=== PATIENT | male | born 1995 | race Caucasian/White ===

== ENCOUNTER 2016-12-18 01:30 | Inpatient (IN) | payer OTHER ==
--- NOTE | 2016-12-18 01:45 | EDPHY ---
H & P Stated Complaint: muscle tightness&numbnes, rash post triathlon training HPI/ROS: HPI CHIEF COMPLAINT: Bilateral leg pain, bilateral lower extremity weakness, tingling, rash HISTORY OF PRESENT ILLNESS: This patient 21-year-old male, otherwise healthy, tells me that he recently had strep pharyngitis diagnosed with former Clinic and completed 2 courses of antibiotics but cannot remember the antibiotics he presents to the emergency room 2 o'clock in the morning stating that he has bilateral lower extremity weakness bilateral lower extremity pain is unable walk and numbness and tingling to his bilateral lower extremities. Patient tells me that he has been training for a triathlon and swimming extensively on Wednesday was swimming in the pool and his leg started have severe pain cramping especially around his heels he had to stop swimming. He worked out on Wednesday again same thing happened it has progressively gotten worse over the past week. Tells me that now both his legs bilaterally hurting he has muscle aches, and then this evening after drinking multiple alcoholic beverages tells me that he has worsening numbness and tingling in his bilateral legs is unable to walk his legs feel weak and heavy. He also knows approximately 3 hours ago he has a rash that is on his bilateral lower extremities and scrotum. Denies recent fever. Does tell me he still has a sore throat. He denies neck stiffness or severe neck pain denies severe headache. Denies nausea vomiting. Patient also tells me that he has low back pain. Past Medical History: Denies significant medical history, recently diagnosed with strep pharyngitis with 2 courses of antibiotics. Past Surgical History: Denies significant surgical history Social History: [employer] student, occasional alcohol use, denies drugs or tobacco Family History: Noncontributory ROS REVIEW OF SYSTEMS: A comprehensive 10 point review of systems is otherwise negative aside from elements mentioned in the history of present illness. Exam Constitutional Nontoxic appearing, no meningeal signs, triage nursing summary reviewed, vital signs reviewed, awake/alert. Eyes normal conjunctivae and sclera, EOMI, PERRLA. HENT normal inspection, atraumatic, moist mucus membranes, no epistaxis, neck supple/ no meningismus, no raccoon eyes. Respiratory clear to auscultation bilaterally, normal breath sounds, no respiratory distress, no wheezing. Cardiovascular rate normal, regular rhythm, no murmur, no edema, distal pulses normal. Gastrointestinal soft, non-tender, no rebound, no guarding, normal bowel sounds, no distension, no pulsatile mass. Genitourinary no CVA tenderness. Musculoskeletal no midline vertebral tenderness, full range of motion, no calf swelling, no tenderness of extremities, no meningismus, good pulses, neurovascularly intact. Skin there is a non blanchable petechial rash of the bilateral lower extremities, and noted on the scrotum, nontender, they are palpable, no central clearing, does not involve his stomach back chest arms located diffusely spread out on his legs and scrotum pink, warm, & dry Neurologic Bilateral lower extremity: On reflex testing he has hyperreflexia, when I have him try to ambulate he is unable to do so due to leg weakness. On leg strength testing bilaterally history of 5 strength he is able to lift his leg up off the bed hold it in the air however does drift with the bed. He is easily broken with resistance. Hyperreflexia on patella exam. Diffuse looking particular rash in the bilateral extremities. awake, alert and oriented x 3, AAOx3, moves all 4 extremities equally, motor intact, sensory intact, CN II-XII intact, normal cerebellar, normal vision, normal speech. Psychiatric normal mood/affect. Heme/Lymph/Immune no lymphadenopathy. Differential Diagnosis: Includes but is not limited to in a particular order electrolyte abnormality, rhabdomyolysis, dehydration, Guillain-Uvalda syndrome, transverse myelitis, viral meningitis, bacterial meningitis, Erythema multiform, Ortiz-Shankar syndrome, drug reaction Medical Decision Making: This patient had an IV established obtain blood work including blood cultures, he will have inflammatory markers. Patient had blood cultures. Lactic acid. He will need a CT scan of his head, chest x-ray, he will need MRI with contrast of his T and L-spine due to severe leg weakness. And most likely patient will need a lumbar puncture. Re-evaluation: CT scan of the head without IV contrast. The results of the study are negative for acute intracranial abnormality. The study was read by Dr. Mitchell. I viewed the images myself on the PACS system. 0233: IT is noted this strep pharyngitis test is positive. EKG interpretation by me on record in [employer] system. Impression time of EKG 2:35 a.m., this is sinus rhythm rate of 93, early people pattern present. LVH present. No evidence of ischemia. 0305: Patient verbally and written consent for CSF studies. On lumbar puncture. Reason for lumbar puncture rule out viral or bacterial meningitis causing particular rash on leg weakness. Procedure: Lumbar puncture. Indication: Rule out meningitis, petechial rash, leg weakness After verbal informed consent from patient explaining the risks including infection, bleeding, and neurologic damage, a lumbar puncture was performed after the patient was prepped and draped in the usual fashion. The back was anesthetized with 1% lidocaine. Approximately 4 cc of clear fluid was obtained. Opening pressure was not obtained. There were no complications. The procedure was performed by myself. 0315: Re-examination at this time this patient is status post LP is resting comfortably. Afebrile nontoxic-appearing. 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 This patient be admitted to the step-down unit for close monitoring. I did update his mom over the phone she lives in [place] she is an ER nurse. She understands extensive workup for leg weakness petechial rash. Lumbar puncture results are pending at this time MRI of T and L-spine are pending. 0317: spoke with Dr. lott the hospitalist service who will come and see and evaluate the patient admit the patient. Patient be admitted down to Step-Down Unit in case his ascending weakness progressively gets worse. At this time he has no trouble breathing, no evidence of respiratory distress. Critical Care: Total Critical Care Time Spent Managing this Patient: 65 Minutes. This time was spent Exclusively with this patient. This Care was exclusive of procedures. The Organ System/life at risk was neurological, leg weakness, petechial rash This Patient was in Critical Condition because leg weakness, particular rash, potential Guillain-Uvalda syndrome 0512: Patient is back from MRI resting comfortably no acute distress still has leg weakness. Nontoxic appearing. MRI is complete of T-spine and L-spine no formal read at this time. Patient received antibiotics will be admitted to Step-Down Unit. MRI of the thoracic spine. The results of the study are negative for acute abnormality. I discussed the results of this study with the radiologist Dr. Mitchell MRI of the lumbar spine . The results of the study are negative for acute abnormality I discussed the results of this study with the radiologist Dr. Mitchell. Source: Patient - Personal History Current Tetanus/Diphtheria Vaccine: Yes Current Tetanus Diphtheria and Acellular Pertussis (TDAP): Yes - Medical/Surgical History Hx Asthma: No Hx Chronic Respiratory Disease: No Hx Diabetes: No Hx Cardiac Disease: No Hx Renal Disease: No Hx Cirrhosis: No Hx Alcoholism: No Hx HIV/AIDS: No Hx Splenectomy or Spleen Trauma: No Other PMH: denies - Social History Smoking Status: Never smoked Constitutional: Initial Vital Signs Temperature (C) 37.6 C 12/18/16 01:36 Heart Rate 110 H 12/18/16 01:36 Respiratory Rate 16 12/18/16 01:36 Blood Pressure 158/70 H 12/18/16 01:36 O2 Sat (%) 95 12/18/16 01:36 O2 Delivery Mode Room Air Allergies/Adverse Reactions: No Known Allergies Allergy (Unverified 08/01/16 04:03) Home Medications: Medication Instructions Recorded NK [No Known Home Meds] 08/01/16 Medical Decision Making - Data Points Laboratory Results: Laboratory Results 12/18/16 02:05 12/18/16 02:05 12/18/16 12/18/16 12/18/16 03:10 03:10 02:20 WBC RBC Hgb Hct MCV MCH MCHC RDW Plt Count MPV Neut % (Auto) Lymph % (Auto) [place] % (Auto) Eos % (Auto) Baso % (Auto) Nucleat RBC Rel Count Absolute Neuts (auto) Absolute Lymphs (auto) Absolute Monos (auto) Absolute Eos (auto) Absolute Basos (auto) Absolute Nucleated RBC Immature Gran % Immature Gran # ESR PT INR APTT VBG Lactic Acid Sodium Potassium Chloride Carbon Dioxide Anion Gap BUN Creatinine Estimated GFR Glucose Calcium Magnesium Total Bilirubin Conjugated Bilirubin Unconjugated Bilirubin AST ALT Alkaline Phosphatase Creatine Kinase CK-MB (CK-2) Fraction CK-MB (CK-2) % Creatine Kinase Interp Troponin I C-Reactive Protein NT-Pro-B Natriuret Pep Total Protein Albumin Lipase CSF Tube Number 1 CSF Appearance CLEAR (CLEAR) CSF Color COLORLESS (COLORLESS) CSF Supernatant COLORLESS (COLORLESS) CSF WBC 4 /mm3 /mm3 (0-5) CSF RBC 0 /mm3 /mm3 (0-0) CSF Glucose 61 mg/dL mg/dL (50-75) CSF Total Protein 34 mg/dL mg/dL (12-60) Ethyl Alcohol HSV Source Description Pending HSV I DNA PCR Pending HSV II DNA PCR Pending Monoscreen Group A Strep Screen POSITIVE H (NEGATIVE) 12/18/16 12/18/16 12/18/16 02:05 02:05 02:05 WBC RBC Hgb Hct MCV MCH MCHC RDW Plt Count MPV Neut % (Auto) Lymph % (Auto) [place] % (Auto) Eos % (Auto) Baso % (Auto) Nucleat RBC Rel Count Absolute Neuts (auto) Absolute Lymphs (auto) Absolute Monos (auto) Absolute Eos (auto) Absolute Basos (auto) Absolute Nucleated RBC Immature Gran % Immature Gran # ESR PT INR APTT VBG Lactic Acid 2.3 mmol/L H mmol/L (0.7-2.1) Sodium 143 mEq/L mEq/L (134-144) Potassium 3.8 mEq/L mEq/L (3.5-5.2) Chloride 107 mEq/L mEq/L (97-110) Carbon Dioxide 21 mEq/l L mEq/l (22-31) Anion Gap 15 mEq/L mEq/L (8-16) BUN 12 mg/dL mg/dL (7-23) Creatinine 0.7 mg/dL mg/dL (0.7-1.3) Estimated GFR > 60 Glucose 90 mg/dL mg/dL (70-100) Calcium 9.8 mg/dL mg/dL (8.5-10.4) Magnesium 2.0 mg/dL mg/dL (1.6-2.3) Total Bilirubin 0.3 mg/dL mg/dL (0.1-1.4) Conjugated Bilirubin 0.3 mg/dL mg/dL (0.0-0.5) Unconjugated Bilirubin 0.0 mg/dL mg/dL (0.0-1.1) AST 60 IU/L H IU/L (17-59) ALT 44 IU/L IU/L (21-72) Alkaline Phosphatase 80 IU/L IU/L (38-126) Creatine Kinase 990 IU/L H IU/L (0-224) CK-MB (CK-2) Fraction 3.89 ng/mL H ng/mL (0-3.19) CK-MB (CK-2) % 0.4 % % (0.0-4.0) Creatine Kinase Interp NEGATIVE (NEGATIVE) Troponin I < 0.012 ng/mL ng/mL (0-0.034) C-Reactive Protein 8.9 mg/L mg/L (<10.0) NT-Pro-B Natriuret Pep 20 pg/mL pg/mL (0-125) Total Protein 8.4 g/dL H g/dL (6.3-8.2) Albumin 4.8 g/dL g/dL (3.5-5.0) Lipase 74.0 IU/L IU/L (23-300) CSF Tube Number CSF Appearance CSF Color CSF Supernatant CSF WBC CSF RBC CSF Glucose CSF Total Protein Ethyl Alcohol 113 mg/dL H mg/dL (0-10) HSV Source Description HSV I DNA PCR HSV II DNA PCR Monoscreen NEGATIVE (NEGATIVE) Group A Strep Screen 12/18/16 12/18/16 02:05 02:05 WBC 19.76 10^3/uL H 10^3/uL (3.80-9.50) RBC 5.70 10^6/uL 10^6/uL (4.40-6.38) Hgb 14.8 g/dL g/dL (13.7-17.5) Hct 45.7 % % (40.0-51.0) MCV 80.2 fL L fL (81.5-99.8) MCH 26.0 pg L pg (27.9-34.1) MCHC 32.4 g/dL g/dL (32.4-36.7) RDW 15.9 % H % (11.5-15.2) Plt Count 301 10^3/uL 10^3/uL (150-400) MPV 9.5 fL fL (8.7-11.7) Neut % (Auto) 77.9 % H % (39.3-74.2) Lymph % (Auto) 13.5 % L % (15.0-45.0) [place] % (Auto) 7.2 % % (4.5-13.0) Eos % (Auto) 0.6 % % (0.6-7.6) Baso % (Auto) 0.3 % % (0.3-1.7) Nucleat RBC Rel Count 0.0 % % (0.0-0.2) Absolute Neuts (auto) 15.41 10^3/uL H 10^3/uL (1.70-6.50) Absolute Lymphs (auto) 2.66 10^3/uL 10^3/uL (1.00-3.00) Absolute Monos (auto) 1.42 10^3/uL H 10^3/uL (0.30-0.80) Absolute Eos (auto) 0.12 10^3/uL 10^3/uL (0.03-0.40) Absolute Basos (auto) 0.05 10^3/uL 10^3/uL (0.02-0.10) Absolute Nucleated RBC 0.00 10^3/uL 10^3/uL (0-0.01) Immature Gran % 0.5 % % (0.0-1.1) Immature Gran # 0.10 10^3/uL 10^3/uL (0.00-0.10) ESR 6 MM/HR MM/HR (0-15) PT 12.9 SEC SEC (12.0-15.0) INR 0.98 (0.83-1.16) APTT 25.2 SEC SEC (23.0-38.0) VBG Lactic Acid Sodium Potassium Chloride Carbon Dioxide Anion Gap BUN Creatinine Estimated GFR Glucose Calcium Magnesium Total Bilirubin Conjugated Bilirubin Unconjugated Bilirubin AST ALT Alkaline Phosphatase Creatine Kinase CK-MB (CK-2) Fraction CK-MB (CK-2) % Creatine Kinase Interp Troponin I C-Reactive Protein NT-Pro-B Natriuret Pep Total Protein Albumin Lipase CSF Tube Number CSF Appearance CSF Color CSF Supernatant CSF WBC CSF RBC CSF Glucose CSF Total Protein Ethyl Alcohol HSV Source Description HSV I DNA PCR HSV II DNA PCR Monoscreen Group A Strep Screen Microbiology Results: MICROBIOLOGY 12/18/16 03:10 Cerebral Spinal Fluid Gram Stain - Final Medications Given: Discontinued Medications Sodium Chloride (Ns) 1,000 mls @ 0 mls/hr IV ONCE ONE PRN Reason: Wide Open Stop: 12/18/16 01:59 Last Admin: 12/18/16 02:08 Dose: 1,000 mls Ceftriaxone Sodium 2 gm/ (Dextrose) 50 mls @ 100 mls/hr IV EDNOW ONE PRN Reason: Protocol Stop: 12/18/16 02:46 Last Admin: 12/18/16 05:14 Dose: 50 mls Sodium Chloride (Ns) 1,000 mls @ 0 mls/hr IV ONCE ONE PRN Reason: Wide Open Stop: 12/18/16 02:22 Last Admin: 12/18/16 02:22 Dose: 1,000 mls Lorazepam (Ativan Injection) 1 mg IVP EDNOW ONE Stop: 12/18/16 03:29 Last Admin: 12/18/16 03:28 Dose: 1 mg Departure - Departure Disposition: [facility] Inpatient Acute Clinical Impression: Strep pharyngitis, Guillain-Uvalda syndrome, Petechial rash Leg weakness Qualifiers: Laterality: bilateral Qualified Code(s): R29.898 - Other symptoms and signs involving the musculoskeletal system Condition: Serious
[2016-12-18] MEDS ORDERED: NS 1,000 ML IV ONE ×3 (01:58→02:21)
[2016-12-18 02:15] LABS: % IMMATURE GRANULYOCYTES 0.5 % (0.0-1.1); ADD DIFF? NO; ADD MORPH? NO; ADD SCAN? NO; ATYPICAL LYMPHOCYTE FLAG 20 (0-99); FRAGMENT RBC FLAG 0 (0-99); HEMATOCRIT 45.7 % (40.0-51.0); HEMOGLOBIN 14.8 g/dL (13.7-17.5); LEFT SHIFT FLG 0 (0-99); LIPEMIA HEMOLYSIS FLAG 80 (0-99); MEAN CELL HEMOGLOBIN CONCENTR. 32.4 g/dL (32.4-36.7); MEAN CELL VOLUME 80.2 fL (81.5-99.8); MEAN PLATELET VOLUME 9.5 fL (8.7-11.7); PLATELET CLUMPS FLAG 0 (0-99); PLATELET COUNT 301 10^3/uL (150-400); RED CELL DISTRIBUTION WIDTH 15.9 % (11.5-15.2)
[2016-12-18] MEDS ORDERED: cefTRIAXone 2 GM in D5W 50 ML IV ONE (02:17)
[2016-12-18] MEDS ORDERED: VANCOMYCIN HCL/NORMAL SALINE 250 ML IV ONE (02:17)
[2016-12-18 02:25] LABS: APTT 25.2 SEC (23.0-38.0); INR 0.98 (0.83-1.16); PROTIME(PATIENT) 12.9 SEC (12.0-15.0)
[2016-12-18 02:31] LABS: ALANINE AMINOTRANSFERASE 44 IU/L (21-72); ALBUMIN 4.8 g/dL (3.5-5.0); ALKALINE PHOSPHATASE 80 IU/L (38-126); ANION GAP 15 mEq/L (8-16); ASPARTATE AMINOTRANSFERASE 60 IU/L (17-59); BILIRUBIN,TOTAL 0.3 mg/dL (0.1-1.4); BILIRUBIN-CONJUGATED 0.3 mg/dL (0.0-0.5); C-REACTIVE PROTEIN 8.9 mg/L (<10.0); CALCIUM 9.8 mg/dL (8.5-10.4); CARBON DIOXIDE 21 mEq/l (22-31); CHLORIDE 107 mEq/L (97-110); CREATININE 0.7 mg/dL (0.7-1.3); ETHANOL SERUM 113 mg/dL (0-10); GLOMERULAR FILTRATION RATE > 60; GLUCOSE 90 mg/dL (70-100); POTASSIUM 3.8 mEq/L (3.5-5.2); SODIUM 143 mEq/L (134-144); TOTAL PROTEIN 8.4 g/dL (6.3-8.2)
--- NOTE | 2016-12-18 02:37 | CPEKG ---
Heart Rate: 93 RR Interval: 645 P-R Interval: 140 QRSD Interval: 96 QT Interval: 340 QTC Interval: 423 P [place]: 64 QRS [place]: 49 T Wave [place]: 20 EKG Severity - ABNORMAL ECG - EKG Impression: SINUS RHYTHM EKG Impression: PROBABLE LEFT VENTRICULAR HYPERTROPHY EKG Impression: ST ELEV, PROBABLE NORMAL EARLY REPOL PATTERN Electronically Signed By: Quinton Germain 18-Dec-2016 06:38:41
[2016-12-18 02:38] LABS: SEDIMENTATION RATE 6 MM/HR (0-15)
[2016-12-18 02:40] LABS: CK-MB INTERPRETATION NEGATIVE (NEGATIVE); TROPONIN I < 0.012 ng/mL (0-0.034)
[2016-12-18 02:47] LABS: CREATINE KINASE-MB FRACTION 3.89 ng/mL (0-3.19)
[2016-12-18] MEDS ORDERED: LORazepam 2 MG/ML INJ ONE (03:19)
[2016-12-18] MEDS ORDERED: LORazepam 2 MG/ML INJ IVP ONE (03:28)
[2016-12-18 03:42] LABS: PROTEIN, CSF 34 mg/dL (12-60)
[2016-12-18 04:04] LABS: CSF APPEARANCE CLEAR (CLEAR); CSF COLOR COLORLESS (COLORLESS); CSF SUPERNATANT COLORLESS (COLORLESS); WBC, CSF 4 /mm3 (0-5)
[2016-12-18 04:05] LABS: CSF COLOR COLORLESS (COLORLESS)
[2016-12-18] MEDS ORDERED: GADOBUTROL 10 ML VIAL IVP ONE ×2 (04:05→18:37)
[2016-12-18 04:10] LABS: CSF APPEARANCE CLEAR (CLEAR); CSF SUPERNATANT COLORLESS (COLORLESS); WBC, CSF 4 /mm3 (0-5)
[2016-12-18] MEDS ORDERED: ONDANSETRON DISINTEGRATING 4 MG TAB PO PRN (05:46)
[2016-12-18] MEDS ORDERED: ACETAMINOPHEN 325 MG TAB PO PRN (05:46)
[2016-12-18] MEDS ORDERED: LORazepam 2 MG/ML INJ IVP PRN (05:46)
[2016-12-18] MEDS ORDERED: ONDANSETRON 4 MG/2 ML VIAL IVP PRN (05:46)
[2016-12-18] MEDS ORDERED: HYDROCODONE/APAP 5/325 TAB PO PRN (05:46)
[2016-12-18] MEDS ORDERED: NS 1,000 ML IV SCH (06:00)
--- NOTE | 2016-12-18 06:02 | PDGENHP ---
History and Physical - Chief Complaint leg pain and weakness - History of Present Illness Patient is a 21-year-old male with no significant past medical history who presents to the ED complaining of lower extremity pain and weakness. He Naomi little over 2 weeks ago he had developed symptoms of sore throat, and subjective fevers. he was evaluated by the [facility], was diagnosed with strep pharyngitis and was prescribed antibiotic ( cannot recall the name, to be taken twice daily x 10 days). He said he initially began feeling better until about 2 days prior to the end of his antibiotic course, when he again began to feel subjective fevers and worsening sore throat. Denies any other infectious symptom. he went back to the clinic, was again tested for strep which again resulted positive and he was started on a different antibiotic (does not recall name, to be taken once daily x 5 days). His sore throat symptoms remained unchanged and on 12/14 he began to feel cramping in his bilateral feet while performing his triathlon swimming training session. His symptoms prevented him from continuing his exercise due to pain and cramping. he states since this time been feeling the symptoms daily and the pain and cramping seems to have progressed to include his calves and now his distal thigh muscles. In addition to painful muscles he reports associated weakness which he notices more at the end of the day, strength is significantly improved in the morning. Today, patient states his symptoms of intense muscular pain in his bilateral feet, calves and distal thighs had progressed in severity to the point where he felt he could not walk due to the pain and associated weakness. His muscular pain is worse with bending of his joints, but he denies any associated joint pain/arthralgias. He does report associated low back pain and stiffness which is extended up his back into his neck recently and associated with a headache. In addition, he noticed a new red, nonblanching rash on his bilateral lower extremities, also with some scrotal involvement. He denies any chest pain, cough , shortness of breath, abdominal pain, nausea, vomiting, diarrhea or urinary symptoms. On arrival to the ED patient was afebrile and hemodynamically stable, saturating well on room air. Labs revealed the significant leukocytosis, elevated lactic acid, mildly elevated CK and rapid strep swab was positive. Chest x-ray was unremarkable, CT head was also unremarkable. He underwent lumbar puncture, with cerebral spinal fluid analysis unremarkable. MRI of the T and/L-spine were also obtained and did not reveal any acute pathology. He was given broad-spectrum antibiotic coverage for presumed meningitis and admitted to the hospital service for further management. 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 He denies any supplement use and also denies any overtly strenuous activity recently. He is also sexually active, uses barrier protection, denies any previous history of STIs. History Information - Allergies/Home Medication List Allergies/Adverse Reactions: No Known Allergies Allergy (Unverified 08/01/16 04:03) Home Medications: NK [No Known Home Meds] 08/01/16 [Last Taken Unknown] I have personally reviewed and updated: family history, medical history, social history, surgical history - Past Medical History no pertinent PMH - Surgical History Reports: no pertinent surgical hx - Family History Positive for: hypertension ( In his father) - Social History Smoking Status: Never smoked Alcohol Use: Occasionally Drug Use: None Additional social history: patient is a student at [employer]. Is originally from [place], is here for college. His parents are also in the [facility], currently living in [place]. Review of Systems ROS: 10pt was reviewed & negative except for what was stated in HPI & below Physical Exam Temp Pulse Resp BP Pulse Ox 37.2 C 88 16 137/79 H 96 12/18/16 05:14 12/18/16 05:48 12/18/16 05:48 12/18/16 05:48 12/18/16 05:48 Constitutional: no apparent distress, appears nourished, not in pain Eyes: PERRL, anicteric sclera, EOMI Ears, Nose, Mouth, Throat: moist mucous membranes, hearing normal, ears appear normal, no oral mucosal ulcers Cardiovascular: regular rate and rhythym, no murmur, rub, or gallop, pulses symmetric bilaterally, tachycardia, No JVD, No edema Peripheral Pulses: 2+: dorsalis-pedis (R), dorsalis-pedis (L) Respiratory: no respiratory distress, no rales or rhonchi, clear to auscultation Gastrointestinal: normoactive bowel sounds, soft, non-tender abdomen, no palpable masses, No tenderness, No guarding, No rebound, No distension Genitourinary: no bladder fullness, no bladder tenderness Skin: other (purpuric rash on b/l lower extremities, nonblanching, mildly pruritic, extending into scrotum) Musculoskeletal: pain with ROM, muscular tenderness (most severe in b/l calf and distal thigh, however, muscle not tense, extremities with strong palpable distal pulses), generalized weakness, No joint effusion, No joint tenderness Neurologic: AAOx3, sensation intact bilaterally, weakness (lower extremities 3/ 5 in strength bilaterally; upper extremitites 5/5), CN II-XII Intact, other ( reflexes 2/4 in all extremities; except R patellar is diminished) Psychiatric: interacting appropriately, not anxious, not encephalopathic, thought process linear Lab Data & Imaging Review 12/18/16 06:33 12/18/16 06:33 WBC 19.76 10^3/uL (3.80-9.50) H 12/18/16 02:05 RBC 5.70 10^6/uL (4.40-6.38) 12/18/16 02:05 Hgb 14.8 g/dL (13.7-17.5) 12/18/16 02:05 Hct 45.7 % (40.0-51.0) 12/18/16 02:05 MCV 80.2 fL (81.5-99.8) L 12/18/16 02:05 MCH 26.0 pg (27.9-34.1) L 12/18/16 02:05 MCHC 32.4 g/dL (32.4-36.7) 12/18/16 02:05 RDW 15.9 % (11.5-15.2) H 12/18/16 02:05 Plt Count 301 10^3/uL (150-400) 12/18/16 02:05 MPV 9.5 fL (8.7-11.7) 12/18/16 02:05 Neut % (Auto) 77.9 % (39.3-74.2) H 12/18/16 02:05 Lymph % (Auto) 13.5 % (15.0-45.0) L 12/18/16 02:05 [place] % (Auto) 7.2 % (4.5-13.0) 12/18/16 02:05 Eos % (Auto) 0.6 % (0.6-7.6) 12/18/16 02:05 Baso % (Auto) 0.3 % (0.3-1.7) 12/18/16 02:05 Nucleat RBC Rel Count 0.0 % (0.0-0.2) 12/18/16 02:05 Absolute Neuts (auto) 15.41 10^3/uL (1.70-6.50) H 12/18/16 02:05 Absolute Lymphs (auto) 2.66 10^3/uL (1.00-3.00) 12/18/16 02:05 Absolute Monos (auto) 1.42 10^3/uL (0.30-0.80) H 12/18/16 02:05 Absolute Eos (auto) 0.12 10^3/uL (0.03-0.40) 12/18/16 02:05 Absolute Basos (auto) 0.05 10^3/uL (0.02-0.10) 12/18/16 02:05 Absolute Nucleated RBC 0.00 10^3/uL (0-0.01) 12/18/16 02:05 Immature Gran % 0.5 % (0.0-1.1) 12/18/16 02:05 Immature Gran # 0.10 10^3/uL (0.00-0.10) 12/18/16 02:05 ESR 6 MM/HR (0-15) 12/18/16 02:05 PT 12.9 SEC (12.0-15.0) 12/18/16 02:05 INR 0.98 (0.83-1.16) 12/18/16 02:05 APTT 25.2 SEC (23.0-38.0) 12/18/16 02:05 VBG Lactic Acid 2.3 mmol/L (0.7-2.1) H 12/18/16 02:05 Sodium 143 mEq/L (134-144) 12/18/16 02:05 Potassium 3.8 mEq/L (3.5-5.2) 12/18/16 02:05 Chloride 107 mEq/L (97-110) 12/18/16 02:05 Carbon Dioxide 21 mEq/l (22-31) L 12/18/16 02:05 Anion Gap 15 mEq/L (8-16) 12/18/16 02:05 BUN 12 mg/dL (7-23) 12/18/16 02:05 Creatinine 0.7 mg/dL (0.7-1.3) 12/18/16 02:05 Estimated GFR > 60 12/18/16 02:05 Glucose 90 mg/dL (70-100) 12/18/16 02:05 Calcium 9.8 mg/dL (8.5-10.4) 12/18/16 02:05 Magnesium 2.0 mg/dL (1.6-2.3) 12/18/16 02:05 Total Bilirubin 0.3 mg/dL (0.1-1.4) 12/18/16 02:05 Conjugated Bilirubin 0.3 mg/dL (0.0-0.5) 12/18/16 02:05 Unconjugated Bilirubin 0.0 mg/dL (0.0-1.1) 12/18/16 02:05 AST 60 IU/L (17-59) H 12/18/16 02:05 ALT 44 IU/L (21-72) 12/18/16 02:05 Alkaline Phosphatase 80 IU/L (38-126) 12/18/16 02:05 Creatine Kinase 990 IU/L (0-224) H 12/18/16 02:05 CK-MB (CK-2) Fraction 3.89 ng/mL (0-3.19) H 12/18/16 02:05 CK-MB (CK-2) % 0.4 % (0.0-4.0) 12/18/16 02:05 Creatine Kinase Interp NEGATIVE (NEGATIVE) 12/18/16 02:05 Troponin I < 0.012 ng/mL (0-0.034) 12/18/16 02:05 C-Reactive Protein 8.9 mg/L (<10.0) 12/18/16 02:05 NT-Pro-B Natriuret Pep 20 pg/mL (0-125) 12/18/16 02:05 Total Protein 8.4 g/dL (6.3-8.2) H 12/18/16 02:05 Albumin 4.8 g/dL (3.5-5.0) 12/18/16 02:05 Lipase 74.0 IU/L (23-300) 12/18/16 02:05 CSF Tube Number 4 12/18/16 03:43 CSF Appearance CLEAR (CLEAR) 12/18/16 03:43 CSF Color COLORLESS (COLORLESS) 12/18/16 03:43 CSF Supernatant COLORLESS (COLORLESS) 12/18/16 03:43 CSF WBC 4 /mm3 (0-5) 12/18/16 03:43 CSF RBC 2 /mm3 (0-0) H 12/18/16 03:43 CSF Glucose 61 mg/dL (50-75) 12/18/16 03:10 CSF Total Protein 34 mg/dL (12-60) 12/18/16 03:10 Ethyl Alcohol 113 mg/dL (0-10) H 12/18/16 02:05 Monoscreen NEGATIVE (NEGATIVE) 12/18/16 02:05 Group A Strep Screen POSITIVE (NEGATIVE) H 12/18/16 02:20 Visualized and Interpreted Chest x-ray results: Yes Chest X-Ray results: no infiltrate Visualized and Interpreted imaging results: Yes Interpretation: CT head: no acute abnormalities. MRI T/L spine: no acute abnormalities Visualized and Interpreted EKG results: Yes EKG Interpretation: Positive for: LVH, normal sinsus rhythm Assessment & Plan Assessment: Patient is a 21/M with no significant past medical history who presents to the ED with 2 weeks of strept pharyngitis symptoms, s/p two complete courses of antibiotics who has now developed b/l lower extremity rash and weakness. Plan: # acute lower extremity rash, pain and weakness Etiology of patient's symptoms is not clear at this time; differential includes infectious vs vasculitis vs myositis. Given recent febrile illness, symmetric lower extremity weakness that appears to be ascending, Guillain [place] is also on the differential. However, reflexes appear to be normal currently. MRI of T/ L spine unremarkable for any acute pathology. Vasculitis, veto HSP, post-strept GN, dermatomyositis or polymyositis are also possibilities, given purpuric rash , myalgias and elevated CK. Will need to check complement levels, UA for proteinuria. Will obtain neurology consult and consider dermatology and/or rheumatology consult also. # acute strep pharyngitis Patient reports symptoms started over 2 weeks ago and he was diagnosed with strep pharyngitis. He is s/p 2 courses of antibiotics (unable to recall the names), but continues to have symptoms and remains strep positive on presentation today. He also meets sepsis criteria with tachycardia, leukocytosis and elevated lactic acid. Pharyngitis is presumed source of infection. He was given broad antibiotic coverage in the ED for meningitis/PRESS BREAKER coverage, however, CSF analysis is unremarkable. Will continue broad spectrum antibiotics and consult ID for further input. # dispo: admit to inpt service for likely > 2 [place] stay given unknown etiology of patient's symptoms # gen: regular diet DVT ppx: low risk Full code
[2016-12-18 06:51] LABS: % IMMATURE GRANULYOCYTES 0.3 % (0.0-1.1); ABSOLUTE IMMATURE GRANULOCYTES 0.05 10^3/uL (0.00-0.10); ADD DIFF? NO; ADD MORPH? NO; ADD SCAN? NO; ATYPICAL LYMPHOCYTE FLAG 20 (0-99); FRAGMENT RBC FLAG 0 (0-99); HEMATOCRIT 42.8 % (40.0-51.0); LEFT SHIFT FLG 0 (0-99); LIPEMIA HEMOLYSIS FLAG 80 (0-99); MEAN CELL HEMOGLOBIN 26.4 pg (27.9-34.1); MEAN CELL HEMOGLOBIN CONCENTR. 32.7 g/dL (32.4-36.7); MEAN CELL VOLUME 80.6 fL (81.5-99.8); MEAN PLATELET VOLUME 9.7 fL (8.7-11.7); PLATELET CLUMPS FLAG 20 (0-99); PLATELET COUNT 247 10^3/uL (150-400); RED BLOOD CELL COUNT 5.31 10^6/uL (4.40-6.38); RED CELL DISTRIBUTION WIDTH 15.9 % (11.5-15.2)
[2016-12-18 07:10] LABS: ANION GAP 15 mEq/L (8-16); CALCIUM 8.2 mg/dL (8.5-10.4); CARBON DIOXIDE 22 mEq/l (22-31); CHLORIDE 107 mEq/L (97-110); CREATININE 0.7 mg/dL (0.7-1.3); GLOMERULAR FILTRATION RATE > 60; GLUCOSE 89 mg/dL (70-100); MAGNESIUM 1.6 mg/dL (1.6-2.3); POTASSIUM 4.7 mEq/L (3.5-5.2); SODIUM 144 mEq/L (134-144); SPECIMEN HEMOLYSIS 105
[2016-12-18 07:21] LABS: CREATINE KINASE-MB FRACTION 3.35 ng/mL (0-3.19)
[2016-12-18 07:50] LABS: CK-MB INTERPRETATION NEGATIVE (NEGATIVE)
--- NOTE | 2016-12-18 12:39 | GCON ---
INFECTIOUS DISEASE CONSULTATION DATE OF CONSULTATION: 12/18/2016 REFERRING PHYSICIAN: Vanessa Smith MD REASON FOR CONSULTATION: Recurrent group A streptococcus pharyngitis and lower extremity rash. HISTORY OF PRESENT ILLNESS: A 21-year-old male with no past medical history whose problems date back to November 20, 2016 when he developed severe pharyngitis associated with difficulty swallowing. The patient presented to [facility], was found to have group A strep pharyngitis and was started on penicillin 500 mg 3 times daily for 10 days, but patient reports discontinuing therapy 2 days early. Following that therapy, the patient immediately developed recurrent sore throat with fevers and malaise and presented to [facility] again with a positive strep test. The patient was started on azithromycin which he completed approximately 7 days prior to admission. Following that therapy, he did continue to have minimal sore throat and starting on December 14 he developed lower extremity cramping. Initially, he thought it was due to resuming triathlon training, but his muscles continued to cramp, and on December 17 around 10 p.m. the pain was markedly worse. He was out drinking with friends and went home because of this discomfort and when he took off his pants he noticed spots on his legs. His parents recommended he present to the emergency room for evaluation. He denies current fevers. He has felt sluggish the last several days and has a mild cough. He is not taking any medicines including was specifically prompted for supplements, NSAIDS, and Tylenol. He also notes that he feels weak in his right greater than left feet specifically, stating his feet "feel like they are swollen" and he has no control over his toes. Today, he reports that his weakness in his feet is slightly better, but he notes that his rash is a little more extensive than yesterday. He notes that his rash is only present on his lower extremities. He has not noticed any other place. PAST MEDICAL HISTORY: Negative. He has had a history of group A strep in the past, but would not say that he has had too many. PAST SURGICAL HISTORY: None. SOCIAL HISTORY: The patient smokes rarely socially. Occasional marijuana. Does drink alcohol. He is originally from [place] and he visited there October 23 through October 27, and then followed by [place] October 27 through the , and he also visited his family who live in [facility]. He is sexually active with women. He reports using condoms 100% of the time. No past sexually-transmitted infections. The patient does not have any pets or unusual exposures to wildlife. FAMILY HISTORY: Reviewed and noncontributory. MEDS: none as outpatient ALL: NKDA ROS: 10 point ROS performed and is negative except as mentioned in the HPI. PHYSICAL EXAM: VITAL SIGNS: Blood pressure 119/54, heart rate 90, respiratory rate 18, saturation 97% on room air, temperature 37, T-max 37.6. GENERAL: This is a young-appearing male sitting in bed in no acute distress with fluent speech. HEENT: Pupils reactive bilaterally. Extraocular muscles are intact. Oropharynx: Moist mucous membranes. Good dentition. No oral ulcerations. His posterior pharynx is remarkable for 3+ swollen tonsils, left greater than right, with a small amount of exudate on the left. Tongue was midline. NECK: Supple. No tenderness to palpation. No lymphadenopathy. No submental tenderness or swelling. CARDIOVASCULAR: Regular rate and rhythm. No murmurs. CHEST: Clear to auscultation bilaterally. ABDOMEN: Soft, nontender. Bowel sounds are present. EXTREMITIES: He had no joint swelling. No edema. SKIN: Patient had a vasculitic eruption distributed most prominently on his distal legs in the calf, but scattered lesions also on the upper thighs; none noted anywhere else. NEURO: Upper extremity strength was intact. Lower extremity: He did have a 3/5 flexion and extension of the ankle. He had upgoing toes on the left, downgoing toes on the right. His reflexes were intact. He was alert oriented x4 and had excellent processing of questions. LABS: White count 19.7, hematocrit 45, platelets of 301; 77% neutrophils, 13% lymphocytes. Today, his white count is 16.4. Creatinine 0.7. CK slightly elevated at 906. AST 68, ALT 44. Alcohol level was 113. HIV is negative. Group A strep screen was positive. [place] screen was negative. A lumbar puncture was performed in the emergency room that showed CSF with WBC of 4, RBC of 2, glucose of 61, and total protein of 34. IMAGING: Patient also underwent a thoracic and lumbar spine MRI which were within normal limits, as well as a head CT. Further, a chest x-ray was performed and was negative. 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 Agree with Neurology consult. 2. Would treat underlying pharyngitis and hold off on steroid therapy at this point, since the patient's strength is improving already overnight, but will defer to Neurology if he needs steroids from their perspective. 3. Will continue to follow blood cultures, which were collected at admission. 4. Continue ceftriaxone IV daily. 5. Discontinue vancomycin. 6. Would add on hepatitis B, C, and cytomegalovirus serologies, although clinically he has a known infectious precipitant, group A streptococcus. TIME SPENT: 75 minutes. Greater than 50% of time spent with education and counseling of the patient, as well as I called his mother who lives in [place] and explained the above points as delineated in the assessment and plan. Thank you for this consultation. We will continue to follow on a daily basis. /[id number]/MODL MTDD
--- NOTE | 2016-12-18 15:05 | GCON ---
NEUROLOGY CONSULT. REFERRING PHYSICIAN: Vanessa Smith MD CHIEF COMPLAINT: Lower extremity weakness. The patient is a very pleasant 21-year-old young man who is a student at , who is from [place]. 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 He states at the end of October he developed strep throat, went on a 10-day course of antibiotics, but did not receive the last 2 days due to travel, therefore he got 8 days of antibiotics. A few days after he finished he began having symptoms again of myalgias, sore throat, feverishness, saw his physician again and got a 5-day course of antibiotics, which he completed. He was improving from that, and then Wednesday he was doing triathlon training, Wednesday being December 14, 2016. He started noticing he started having tightness diffusely, but more prominently in his distal lower extremities. It seemed to be activity dependent and relax or get better when he went to sleep or rested, but it would reoccur and get more tight any time he was walking or exercise. This cycle continued until last night, when the tightness in his calves were so severe he had to walk with a broad-based gait, and simultaneously noticed a sudden rash of red petechiae on his lower extremities, which stimulated him to come to the emergency department last night. He had an MRI of the lumbar and thoracic spine which showed no abnormalities. Head CT was negative. He had a lumbar puncture which showed 4 white cells, a normal protein of 34, and glucose was 61. A group A strep screen was positive, other infectious disease parameters are pending. Complement C3 and 4 are pending. His creatine kinase was elevated at 906, CK- MB fraction was elevated at 3.35, white count was 16.4. Overnight some of the symptoms have improved. Specifically, he also developed numbness from below his knees down bilaterally, that has resolved overnight. The weakness has improved as well. He is able to walk now with a normal gait. He does have some pain in his calves, which have occurred with a feeling of cramping and tightening that is still present, especially with palpation. He also feels some pain in his quadriceps insertion area, which is improving. He has no symptoms in his upper extremities, trunk, torso, abdomen, bulbar region, no cognitive symptoms, no visual symptoms, aphasia or dysarthria. REVIEW OF SYSTEMS: A 10-point review of systems is done and only pertinent to HPI. PAST MEDICAL HISTORY: None. ALLERGIES: None. HOME MEDICATIONS: None. SOCIAL HISTORY: A a student at , originally from [place]. PHYSICAL EXAMINATION: VITAL SIGNS: Blood pressure 109/74, respiratory rate 16 , heart rate 74, temperature 37.0. GENERAL: In no acute distress, a very pleasant young man. Higher mental function, he is awake and alert, he has no aphasia, repeats 5/5, follows commands 5/5, names 5/5. Cranial nerve exam normal 2 through 7, 11, and 12. On motor exam, his upper extremity strength, deep tendon reflexes and tone are normal. In the lower extremities he has normal strength outside of his gastrocnemius muscles, or specifically plantar flexion is 2/5 bilaterally, and he has some tenderness and pain with palpation of his gastrocnemius bilaterally. Tone is normal. Otherwise motor exam is unremarkable. With reflex testing he has 3+ reflexes at his knees bilaterally, 2 beats of clonus bilaterally at the ankles, and 1+ ankle jerks bilaterally. Sensory exam is normal throughout, including in his distal lower extremities. Coordination is normal in upper and lower extremities. SKIN: He does have a vasculitic-appearing eruption on his bilateral lower extremities distally. IMPRESSION AND PLAN: 1. 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 2. Post streptococcal syndrome of vasculitis. The patient's clinical history and neurologic exam suggest a vasculitic picture with involvement of the skin (rash), a sensory neuropathy and myopathy. These latter locations are manifested with the patient's stocking distribution numbness, which has resolved, and calf weakness and pain, which are still present. He may have had some inflammation of the arterioles supplying the peripheral nerves and calf gastrocnemius and/or soleus muscles bilaterally causing his current symptomatology. However, he does have significantly brisk reflexes in his lower extremities. To ensure there is no EDUCATION INSTRUCTOR involvement, we will obtain an MRI of the brain and cervical spine with and without contrast. There is no evidence of Guillain-[place] syndrome based on his CSF exam, and brisk reflexes in his lower extremities. We will review the MRI of brain and cervical spine findings along with the other following teams and make further recommendations. I have talked to Dr. Mena of Infectious Disease, and we will contact Rheumatology regarding the need for immunotherapy, along with antibiotics. We will follow up on the above. Thank you for this consultation. /[id number]/MODL MTDD
--- NOTE | 2016-12-18 15:09 | HOSPPROG ---
Hospitalist Progress Note Assessment/Plan: 21-year-old male who had incomplete treatment for strep pharyngitis several weeks ago with continued symptoms presenting with leukocytoclastic vasculitis and foot weakness * leukocytoclastic vasculitis * most likely due to strep rather than penicillin * ID is following and believes we should treat the underlying infection * unclear if this is also related to lower extremity weakness but it would seem that there may be some peripheral nerve involvement * foot weakness * neurology consulted * considering steroids * normal CSF and reflexes make Guillain-[place] unlikely * seems to be improving * strep pharyngitis * IV ceftriaxone Subjective: weakness is a little better. Pain also improving. Does have a sore throat Objective: Vital Signs Temp Pulse Resp BP Pulse Ox 37.0 C 74 16 109/74 98 12/18/16 07:55 12/18/16 12:00 12/18/16 12:00 12/18/16 12:00 12/18/16 12:00 Laboratory Results 12/18/16 06:33 12/18/16 06:33 12/17/16 12/18/16 12/19/16 05:59 05:59 05:59 Intake Total 1999 Balance 1999 PT 12.9 SEC (12.0-15.0) 12/18/16 02:05 INR 0.98 (0.83-1.16) 12/18/16 02:05 Discussed with Neurology and Infectious Disease - Physical Exam Constitutional: no apparent distress, appears nourished, not in pain Eyes: anicteric sclera, EOMI Ears, Nose, Mouth, Throat: other ( swollen tonsils with erythema and mild amount of exudate) Cardiovascular: regular rate and rhythym, no murmur, rub, or gallop Gastrointestinal: normoactive bowel sounds, soft, non-tender abdomen, no palpable masses Skin: other ( leukocytoclastic vasculitis lower lower extremities) Musculoskeletal: other ( decreased strength plantar flexion and extension and toe flexion. Normal quadriceps and upper extremity strength bilaterally. Brisk quadriceps reflexes) Psychiatric: interacting appropriately, not anxious, not encephalopathic, thought process linear ICD10 Worksheet Patient Problems: Problems Problem Status Onset Guillain-[place] syndrome Acute Leg weakness Acute Petechial rash Acute Strep pharyngitis Acute
[2016-12-18] MEDS ORDERED: diphenhydrAMINE 25 MG CAP PO PRN (22:18)
[2016-12-19 05:44] LABS: % IMMATURE GRANULYOCYTES 0.5 % (0.0-1.1); ABSOLUTE IMMATURE GRANULOCYTES 0.05 10^3/uL (0.00-0.10); ADD DIFF? NO; ADD MORPH? NO; ADD SCAN? NO; ATYPICAL LYMPHOCYTE FLAG 50 (0-99); FRAGMENT RBC FLAG 0 (0-99); HEMATOCRIT 45.2 % (40.0-51.0); HEMOGLOBIN 14.2 g/dL (13.7-17.5); LEFT SHIFT FLG 0 (0-99); LIPEMIA HEMOLYSIS FLAG 80 (0-99); MEAN CELL HEMOGLOBIN 25.4 pg (27.9-34.1); MEAN CELL HEMOGLOBIN CONCENTR. 31.4 g/dL (32.4-36.7); MEAN CELL VOLUME 80.7 fL (81.5-99.8); MEAN PLATELET VOLUME 9.5 fL (8.7-11.7); PLATELET CLUMPS FLAG 0 (0-99); PLATELET COUNT 276 10^3/uL (150-400)
[2016-12-19 06:41] LABS: ANION GAP 9 mEq/L (8-16); CALCIUM 9.5 mg/dL (8.5-10.4); CARBON DIOXIDE 29 mEq/l (22-31); CHLORIDE 104 mEq/L (97-110); CREATININE 0.8 mg/dL (0.7-1.3); GLOMERULAR FILTRATION RATE > 60; GLUCOSE 91 mg/dL (70-100); POTASSIUM 4.4 mEq/L (3.5-5.2); SODIUM 142 mEq/L (134-144)
[2016-12-19 07:11] LABS: CK-MB INTERPRETATION NEGATIVE (NEGATIVE); CREATINE KINASE-MB FRACTION 2.75 ng/mL (0-3.19)
[2016-12-19 07:56] LABS: PHENCYCLIDINE URINE BCH < 6 ng/ml (NEGATIVE); PHENCYCLIDINE URINE BCH NEGATIVE (NEGATIVE); TETRAHYDROCANNABINOL URINE < 5 ng/mL (NEGATIVE); TETRAHYDROCANNABINOL URINE NEGATIVE (NEGATIVE)
--- NOTE | 2016-12-19 09:49 | PCMIDPN ---
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 Some new areas purpura L flank, L forearm, CK trending down. 1) continue IV ceftriaxone 2) Likely DC tomorrow if exam continue to be stable to improved 3) increased activity 4) DC droplet precautions, not needed meds ceftriaxone 2gm IV daily, #2 Microbiology 12/18 blood cx (2) NGTD 12/18 CSF cx : NGTD HIV, HCV, HBV negative Subjective: denies sore throat feels stronger today no GARIBAY no diarrhea appetite good Objective: Vital Signs Temp Pulse Resp BP Pulse Ox 36.7 C 66 18 122/73 H 98 12/19/16 08:00 12/19/16 08:00 12/19/16 08:00 12/19/16 08:00 12/19/16 08:00 Laboratory Results 12/19/16 05:30 12/19/16 05:30 12/18/16 12/19/16 12/20/16 05:59 05:59 05:59 Intake Total 1999 500 Balance 2000 500 ESR 6 MM/HR (0-15) 12/18/16 02:05 C-Reactive Protein 8.9 mg/L (<10.0) 12/18/16 02:05 - Physical Exam General Appearance: WD/WN, alert, no apparent distress, non-toxic EENT: pharyngeal erythema, other (tonsil remain swollen 2-3+, about 30% improved compared to yesterday), No tonsillar exudate Respiratory: lungs clear, No accessory muscle use Cardiac/Chest: bradycardia, No systolic murmur Skin: rash (scatted purpuric eruption B LE, a bit darker; also fainter purpura L forearm) Neuro/Psych: alert, normal mood/affect, oriented x 3, other (4/5 strength, plantar flexon B (improved from yesterday which was 3/5)) - Time Spent With Patient Time Spent with Patient: greater than 35 minutes (reviewed labs, imaging and plans for therapy with patient and mom (via phone)) Time Spent with Patient: Greater than 35 minutes spent on this patients care, greater than 50% of time spent counseling, educating, and coordinating care regarding the above mentioned plan. 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
[2016-12-19] MEDS: cefTRIAXone 2 GM in D5W 50 ML IV SCH (10:33)
--- NOTE | 2016-12-19 12:37 | HOSPPROG ---
Hospitalist Progress Note Assessment/Plan: Patient is a 21-year-old male with no significant past medical history. On he developed severe pharyngitis with difficulty swallowing. He was seen at [facility] and found to have group a strep pharyngitis. He was started on penicillin 500 mg 3 times a day for 10 days but he discontinued therapy 2 days early. He started to have recurrent of sore throat and fevers with associated malaise was then started on azithromycin. He had taken this 7 days prior to this admission. Today is my 1st encounter with the patient. Chart reviewed. * leukocytoclastic vasculitis * most likely due to strep rather than penicillin * ID is following * foot weakness * Neurology notes that this is more a vasculitic picture. He has sensory neuropathy and myopathy. His symptoms have really resolved overall * normal CSF and reflexes make Guillain-[place] unlikely * much improved * GAS strept throat * IV ceftriaxone * blood cultures no growth to date * HIV, HCV and HBV are all negative * says he get strep throat once yearly, sometimes 2 times a year/ may need to see ENT as an OP Plan: continue current treatment/ hopefully, can dc tomorrow Subjective: Stuart is feeling well today/ no sore throat. Weakness has improved. Objective: Vital Signs Temp Pulse Resp BP Pulse Ox 37.0 C 63 18 132/87 H 96 12/19/16 12:00 12/19/16 12:00 12/19/16 12:00 12/19/16 12:00 12/19/16 12:00 Laboratory Results 12/19/16 05:30 12/19/16 05:30 12/18/16 12/19/16 12/20/16 05:59 05:59 05:59 Intake Total 1999 500 Balance 2000 500 PT 12.9 SEC (12.0-15.0) 12/18/16 02:05 INR 0.98 (0.83-1.16) 12/18/16 02:05 - Physical Exam Constitutional: no apparent distress, appears nourished, not in pain Eyes: PERRL Ears, Nose, Mouth, Throat: moist mucous membranes, hearing normal, no oral mucosal ulcers Cardiovascular: regular rate and rhythym Respiratory: no respiratory distress Gastrointestinal: normoactive bowel sounds Skin: other (vasculitis rash on bilateral lower extremites/ scattered and red/ few lesions on upper thigh area) Musculoskeletal: no muscle tenderness Neurologic: AAOx3 Psychiatric: interacting appropriately, not anxious, not encephalopathic ICD10 Worksheet Patient Problems: Problems Problem Status Onset Guillain-[place]incoln syndrome Acute Leg weakness Acute Petechial rash Acute Strep pharyngitis Acute
[2016-12-19 14:09] LABS: COLOR YELLOW; LEUKOCYTE ESTERASE,URINE NEGATIVE (NEGATIVE); NITRITE,URINE NEGATIVE (NEGATIVE)
--- NOTE | 2016-12-19 15:53 | NEUROPROG ---
Assessment: 1. Recurrent Group A streptococcal pharyngitis 2. post Streptococcus vasculitis MRI With and without contrast cervical spine normal. MRI brain with and without contrast essentially normal. single T2 hyperintensity in white matter, likely related to previous concussions. no enhancing lesions or significant white matter pathology suggestive of vasculitis in the [employer]. The patient is plantar flexion has completely recovered. a little bit of calf tenderness still. Sensory exam remains normal. Gait has improved. He is spontaneously recovering from his vasculitis symptoms, including neuritis and myositis. plan reviewed with Infectious Disease, holding off on immunotherapy, he will complete antimicrobial therapy per ID. Likely discharge home tomorrow. No further recommendations from my standpoint now. We will sign off and continue to follow up p.r.n.. Please do not hesitate to call if there are any questions with this very nice patient or any changes in neurologic status. Subjective: improving overnight Objective: Vital Signs Temp Pulse Resp BP Pulse Ox 37.0 C 63 18 132/87 H 96 12/19/16 12:00 12/19/16 12:00 12/19/16 12:00 12/19/16 12:00 12/19/16 12:00 Laboratory Results 12/19/16 05:30 12/19/16 05:30 12/18/16 12/19/16 12/20/16 05:59 05:59 05:59 Intake Total 1999 500 Balance 1999 500 PT 12.9 SEC (12.0-15.0) 12/18/16 02:05 INR 0.98 (0.83-1.16) 12/18/16 02:05 strength in lower extremities now is 5/5 throughout, including gastrocnemius muscles bilaterally sensory exam is normal reflexes are brisk and symmetric toes are downgoing mild tenderness to palpation in medial calfs vasculitic rash remains Allergies/Adverse Reactions: No Known Allergies Allergy (Unverified 08/01/16 04:03)
[2016-12-20 07:56] VITALS: RESP 16; TEMP 97.7
[2016-12-20] MEDS: cefTRIAXone 2 GM in D5W 50 ML IV SCH (08:29)
--- NOTE | 2016-12-20 11:10 | PCMIDPN ---
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 ready to go home Objective: Vital Signs Temp Pulse Resp BP Pulse Ox 36.5 C 56 L 16 126/68 H 97 12/20/16 07:56 12/20/16 07:56 12/20/16 07:56 12/20/16 07:56 12/20/16 07:56 Laboratory Results 12/19/16 05:30 12/19/16 05:30 12/19/16 12/20/16 12/21/16 05:59 05:59 05:59 Intake Total 500 200 Output Total 300 650 Balance 500 -100 -650 ESR 6 MM/HR (0-15) 12/18/16 02:05 C-Reactive Protein 8.9 mg/L (<10.0) 12/18/16 02:05 - Physical Exam General Appearance: alert EENT: pharyngeal erythema, other (R tonsil still enlarged, L improved), No tonsillar exudate Neck: non-tender Extremities: other (raised non-blanching small plaques c/w vasculitis unchanged) Skin: warm/dry, diaphoresis Neuro/Psych: alert, normal mood/affect, oriented x 3, No motor weakness (motor weakness with plantar flexon normalized) ICD10 Worksheet Patient Problems: Problems Problem Status Onset Guillain-Kelayres syndrome Acute Leg weakness Acute Petechial rash Acute Strep pharyngitis Acute
--- NOTE | 2016-12-20 11:13 | HOSPPROG ---
Hospitalist Progress Note Assessment/Plan: Patient is a 21-year-old male with no significant past medical history. On he developed severe pharyngitis with difficulty swallowing. He was seen at [facility] and found to have group a strep pharyngitis. He was started on penicillin 500 mg 3 times a day for 10 days but he discontinued therapy 2 days early. He started to have recurrent of sore throat and fevers with associated malaise was then started on azithromycin. He had taken this 7 days prior to this admission. * leukocytoclastic vasculitis * much improved * * foot weakness * Neurology notes that this is more a vasculitic picture. He has sensory neuropathy and myopathy. His symptoms have really resolved overall * normal CSF and reflexes make Guillain-[place] unlikely * almost resolved * GAS strept throat * IV ceftriaxone * blood cultures no growth to date * HIV, HCV and HBV are all negative * says he get strep throat once yearly, sometimes 2 times a year/ may need to see ENT as an OP * will f/u with Dr Mena/ bharti bid x 11 days Plan: dc today Subjective: Adriel is feeling well/strength is returning. Objective: Vital Signs Temp Pulse Resp BP Pulse Ox 36.5 C 56 L 16 126/68 H 97 12/20/16 07:56 12/20/16 07:56 12/20/16 07:56 12/20/16 07:56 12/20/16 07:56 Laboratory Results 12/19/16 05:30 12/19/16 05:30 12/19/16 12/20/16 12/21/16 05:59 05:59 05:59 Intake Total 500 200 Output Total 300 650 Balance 500 -100 -650 PT 12.9 SEC (12.0-15.0) 12/18/16 02:05 INR 0.98 (0.83-1.16) 12/18/16 02:05 - Physical Exam Constitutional: no apparent distress, appears nourished Ears, Nose, Mouth, Throat: other (tonsils with min redness, left tonsil with some swelling) Respiratory: no respiratory distress Gastrointestinal: normoactive bowel sounds Skin: warm, other (lower extremity vasculitis much improved ) Musculoskeletal: full muscle strength Neurologic: AAOx3 Psychiatric: interacting appropriately, not anxious ICD10 Worksheet Patient Problems: Problems Problem Status 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
[2016-12-20 11:55] VITALS: BP 154/76; PULSE 57; O2SAT 93
--- NOTE | 2016-12-20 19:52 | GDS ---
DISCHARGE DIAGNOSES: 1. Leukocytoclastic vasculitis. 2. Group A Streptococcus Strep throat. 3. Foot weakness. CONSULTATIONS: 1. Dr. Inocencia Mena. 2. Dr. Maycol Morales. HISTORY OF PRESENT ILLNESS: Briefly, the patient is a 21-year-old male who presented to the emergency room complaining of lower extremity pain and weakness. Approximately 2 weeks ago, he developed symptoms of a sore throat and subjective fevers. He was evaluated at [facility] and was diagnosed with Strep pharyngitis. He was prescribed penicillin 500 mg 3 times a day for 10 days, but he discontinued therapy 2 days earlier than recommended. Following that therapy, he immediately developed a sore throat with associated fevers and malaise. He went back to [facility] and had another positive Strep test. He was started on azithromycin which he completed approximately 7 days prior to this admission. He continued to have a minimal sore throat and then he started developing lower extremity cramping. He said it was due to his progressing triathlon training, but his muscles continued to cramp. He started to notice that he started getting spots on his lower extremity. His parents recommended that he come to the ER for further evaluation. He reported that he had weakness in his feet. He was seen and evaluated by Neurology. An MRI was performed. This showed no enhancing lesions or significant white matter pathology to suggest vasculitis. He recovered from his vasculitis symptoms. He will be discharged home and will further follow up with Dr. Mena next week. HOSPITAL COURSE BY PROBLEM: 1. Leukocytoclastic vasculitis. This is much improved. He is almost back to his normal strength today. It is likely that his Strep throat was the cause of the vasculitis. 2. GAS strep throat. He was treated IV ceftriaxone. The blood cultures show no growth to date. He often gets frequently Strep throats, sometimes twice a year. He may need to see an ENT, but first will follow up with Dr. Mena. He will go home on Keflex b.i.d. x11 days. CONDITION AT DISCHARGE: Stable. Blood pressure is 126/68, O2 saturations on room air are 97%, respiratory rate is 16, pulse is 56, temperature is 36.5 Celsius. MEDICATIONS AT DISCHARGE: Please see the EMR. DISCHARGE INSTRUCTIONS: 1. Take Keflex starting tomorrow and complete the whole course. 2. If he develops greater than 3 loose stools, call the ID clinic. TIME SPENT Greater than 30 minutes discharging and coordinating care. /[id number]/MODL [id number]
[2016-12-21 07:00] LABS: C3 COMPLEMENT COMPONENT 114 mg/dL (75 - 175); C4 COMPLEMENT COMPONENT 17 mg/dL (14 - 40)
[2016-12-21 07:40] LABS: MISCELLANEOUS TEST See Comments
[2016-12-21 10:49] LABS: HEPATITIS Bs Ab QUANT 44.1 mIU/mL
== END 2016-12-20 13:42 | disposition home or self-care (01) | DRG 153 ==
LOC: F2N 06:08 → F3N 17:45
PROVIDERS: ADMIT Internal Medicine; ATTEND Hospitalist
PROC: 009U3ZX Drainage of Spinal Canal, Percutaneous Approach, Diagnostic (ICD-10-PCS; principal; 2016-12-18)
DX: J02.0 Streptococcal pharyngitis (principal); I77.6 Arteritis, unspecified; M62.81 Muscle weakness (generalized)
CPT/HCPCS: 80305; 80307; 86644-90; 86645-90; 87529-90; 97161-GP; A9585; G0472; G0480; J0696; J3370

== ENCOUNTER 2016-12-20 23:39 | Inpatient (IN) | payer OTHER ==
[2016-12-21] MEDS ORDERED: ONDANSETRON 4 MG/2 ML VIAL ONE (00:13)
[2016-12-21] MEDS: ONDANSETRON DISINTEGRATING 4 MG TAB PO ONE ×2 (00:15→00:16)
[2016-12-21] MEDS ORDERED: ONDANSETRON 4 MG/2 ML VIAL IVP ONE (00:17)
[2016-12-21 00:21] LABS: % IMMATURE GRANULYOCYTES 0.5 % (0.0-1.1); ABSOLUTE IMMATURE GRANULOCYTES 0.07 10^3/uL (0.00-0.10); ADD DIFF? NO; ADD MORPH? NO; ADD SCAN? NO; ATYPICAL LYMPHOCYTE FLAG 20 (0-99); FRAGMENT RBC FLAG 0 (0-99); HEMATOCRIT 45.4 % (40.0-51.0); HEMOGLOBIN 14.7 g/dL (13.7-17.5); LEFT SHIFT FLG 0 (0-99); LIPEMIA HEMOLYSIS FLAG 80 (0-99); MEAN CELL HEMOGLOBIN 25.4 pg (27.9-34.1); MEAN CELL HEMOGLOBIN CONCENTR. 32.4 g/dL (32.4-36.7); MEAN CELL VOLUME 78.4 fL (81.5-99.8); MEAN PLATELET VOLUME 9.1 fL (8.7-11.7); PLATELET CLUMPS FLAG 0 (0-99); PLATELET COUNT 310 10^3/uL (150-400); RED BLOOD CELL COUNT 5.79 10^6/uL (4.40-6.38); RED CELL DISTRIBUTION WIDTH 15.6 % (11.5-15.2)
[2016-12-21 00:29] LABS: ALANINE AMINOTRANSFERASE 42 IU/L (21-72); ALBUMIN 4.7 g/dL (3.5-5.0); ALKALINE PHOSPHATASE 76 IU/L (38-126); ANION GAP 14 mEq/L (8-16); ASPARTATE AMINOTRANSFERASE 45 IU/L (17-59); BILIRUBIN,TOTAL 0.5 mg/dL (0.1-1.4); BILIRUBIN-CONJUGATED 0.4 mg/dL (0.0-0.5); BILIRUBIN-UNCONJUGATED 0.1 mg/dL (0.0-1.1); CALCIUM 9.4 mg/dL (8.5-10.4); CARBON DIOXIDE 23 mEq/l (22-31); CHLORIDE 103 mEq/L (97-110); CREATININE 0.7 mg/dL (0.7-1.3); GLOMERULAR FILTRATION RATE > 60; GLUCOSE 96 mg/dL (70-100); SODIUM 140 mEq/L (134-144); TOTAL PROTEIN 8.2 g/dL (6.3-8.2)
[2016-12-21] MEDS ORDERED: methylPREDNISolone SOD SUCC 125 MG/2 ML VIAL IVP ONE (00:37)
[2016-12-21] MEDS ORDERED: ONDANSETRON DISINTEGRATING 4 MG TAB PO PRN (00:42)
[2016-12-21] MEDS ORDERED: HYDROmorphONE/DILAUDID 1 MG/ML SYR IVP PRN (00:42)
[2016-12-21] MEDS ORDERED: ACETAMINOPHEN 325 MG TAB PO PRN (00:42)
[2016-12-21] MEDS ORDERED: ONDANSETRON 4 MG/2 ML VIAL IVP PRN (00:42)
[2016-12-21] MEDS ORDERED: LORazepam 2 MG/ML INJ IVP PRN (00:42)
[2016-12-21] MEDS ORDERED: diphenhydrAMINE 25 MG CAP PO PRN (00:42)
--- NOTE | 2016-12-21 00:42 | EDPHY ---
H & P Stated Complaint: VASCULITIS S/P STREP JUST D/WALKER FROM HOSPITAL 1 P.M. Time Seen by Provider: 12/20/16 23:58 HPI/ROS: Chief complaint: Worsening rash in leg and hand pain HPI: 21-year-old male who was discharged from the hospital this afternoon after a several day admission for post streptococcal vasculitis. Patient had presented with lower leg pain numbness and rash. Patient had been doing well but this evening notice that he had worsening pain in his thighs with a spreading rash now to his size and lower abdomen and groin and also worsening rash on his forearms. He is complaining of leg pain in his thighs and in his hand. No fevers or chills. No nausea or vomiting. He has been taking Keflex as instructed in his discharge instructions. He is scheduled to follow up with Infectious Disease in 3 days. ROS: 10 point Review of Systems is negative except as noted in the HPI. Past medical history: Group a strep post streptococcal vasculitis Strep pharyngitis Medications: Keflex Allergies: No known drug allergies Physical exam: Gen: Awake, Alert, No Distress HEENT: Nose: no rhinorrhea Eyes: PERRLA, EOMI Mouth: Moist mucosa Neck: Supple, no JVD Chest: nontender, lungs clear to auscultation Heart: S1, S2 normal, no murmur Abd: Soft, non-tender, no guarding Back: no CVA tenderness, no midline tenderness Ext: no edema, bilateral thigh tenderness, bilateral forearm tenderness Skin: He has a nonblanching vasculitic petechial rash extending from his calves up is thighs to his groin on bilateral forearms. There is sparing of his trunk. Neuro: CN II-XII intact, Sensation grossly intact, Strength 5/5 in bilateral upper and lower extremities - Personal History Current Tetanus/Diphtheria Vaccine: Yes Current Tetanus Diphtheria and Acellular Pertussis (TDAP): Yes - Medical/Surgical History Hx Asthma: No Hx Chronic Respiratory Disease: No Hx Diabetes: No Hx Cardiac Disease: No Hx Renal Disease: No Hx Cirrhosis: No Hx Alcoholism: No Hx HIV/AIDS: No Hx Splenectomy or Spleen Trauma: No Other PMH: RECENT STREP THROAT/CURRENTLY TRAINING FOR TRIATHLON-DENIES OTHER HISTORY - Social History Smoking Status: Never smoked Constitutional: Initial Vital Signs Temperature (C) 36.8 C 12/20/16 23:46 Heart Rate 96 12/20/16 23:46 Respiratory Rate 18 12/20/16 23:46 Blood Pressure 148/89 H 12/20/16 23:46 O2 Sat (%) 97 12/20/16 23:46 O2 Delivery Mode Room Air Allergies/Adverse Reactions: No Known Allergies Allergy (Unverified 12/20/16 23:48) Home Medications: Medication Instructions Recorded Acetaminophen [Tylenol 325mg (*)] 650 mg PO Q4HRS PRN #0 tab 12/20/16 Cephalexin [Keflex (*)] 500 mg PO BID #22 cap 12/20/16 Medical Decision Making ED Course/Re-evaluation: 21-year-old male with post group a strep vasculitis discharge today. His rash and his symptoms are worsening. Now extending to his thighs and forearms. I have discussed with , hospitalist. Will readmit to the hospital for further care. Plan will be to give steroids at this time. - Data Points Laboratory Results: Laboratory Results 12/21/16 00:00 12/21/16 00:00 12/21/16 12/21/16 12/21/16 00:00 00:00 00:00 WBC 15.35 10^3/uL H 10^3/uL (3.80-9.50) RBC 5.79 10^6/uL 10^6/uL (4.40-6.38) Hgb 14.7 g/dL g/dL (13.7-17.5) Hct 45.4 % % (40.0-51.0) MCV 78.4 fL L fL (81.5-99.8) MCH 25.4 pg L pg (27.9-34.1) MCHC 32.4 g/dL g/dL (32.4-36.7) RDW 15.6 % H % (11.5-15.2) Plt Count 310 10^3/uL 10^3/uL (150-400) MPV 9.1 fL fL (8.7-11.7) Neut % (Auto) 73.4 % % (39.3-74.2) Lymph % (Auto) 17.7 % % (15.0-45.0) [place] % (Auto) 6.9 % % (4.5-13.0) Eos % (Auto) 1.2 % % (0.6-7.6) Baso % (Auto) 0.3 % % (0.3-1.7) Nucleat RBC Rel Count 0.0 % % (0.0-0.2) Absolute Neuts (auto) 11.27 10^3/uL H 10^3/uL (1.70-6.50) Absolute Lymphs (auto) 2.71 10^3/uL 10^3/uL (1.00-3.00) Absolute Monos (auto) 1.06 10^3/uL H 10^3/uL (0.30-0.80) Absolute Eos (auto) 0.19 10^3/uL 10^3/uL (0.03-0.40) Absolute Basos (auto) 0.05 10^3/uL 10^3/uL (0.02-0.10) Absolute Nucleated RBC 0.00 10^3/uL 10^3/uL (0-0.01) Immature Gran % 0.5 % % (0.0-1.1) Immature Gran # 0.07 10^3/uL 10^3/uL (0.00-0.10) ESR Pending Sodium 140 mEq/L mEq/L (134-144) Potassium 4.0 mEq/L mEq/L (3.5-5.2) Chloride 103 mEq/L mEq/L (97-110) Carbon Dioxide 23 mEq/l D mEq/l (22-31) Anion Gap 14 mEq/L mEq/L (8-16) BUN 17 mg/dL mg/dL (7-23) Creatinine 0.7 mg/dL mg/dL (0.7-1.3) Estimated GFR > 60 Glucose 96 mg/dL mg/dL (70-100) Calcium 9.4 mg/dL mg/dL (8.5-10.4) Total Bilirubin 0.5 mg/dL D mg/dL (0.1-1.4) Conjugated Bilirubin 0.4 mg/dL mg/dL (0.0-0.5) Unconjugated Bilirubin 0.1 mg/dL mg/dL (0.0-1.1) AST 45 IU/L IU/L (17-59) ALT 42 IU/L IU/L (21-72) Alkaline Phosphatase 76 IU/L IU/L (38-126) Creatine Kinase Pending C-Reactive Protein Pending Total Protein 8.2 g/dL g/dL (6.3-8.2) Albumin 4.7 g/dL g/dL (3.5-5.0) Lipase 66.0 IU/L IU/L (23-300) Medications Given: Discontinued Medications Methylprednisolone Sodium Succinate (Solu-Medrol) 125 mg IVP EDNOW ONE Stop: 12/21/16 00:38 Last Admin: 12/21/16 00:41 Dose: 125 mg Ondansetron HCl (Zofran Odt) 4 mg PO EDNOW ONE Stop: 12/21/16 00:04 Last Admin: 12/21/16 00:16 Dose: Not Given Ondansetron HCl (Zofran) 4 mg IVP EDNOW ONE Stop: 12/21/16 00:18 Last Admin: 12/21/16 00:17 Dose: 4 mg Departure - Departure Disposition: [facility] Acute Clinical Impression: Vasculitis Condition: Fair
[2016-12-21 01:03] LABS: C-REACTIVE PROTEIN 14.2 mg/L (<10.0)
[2016-12-21 01:15] LABS: SEDIMENTATION RATE 8 MM/HR (0-15)
[2016-12-21 01:30] LABS: CK-MB INTERPRETATION NEGATIVE (NEGATIVE); CREATINE KINASE-MB FRACTION 1.48 ng/mL (0-3.19)
[2016-12-21] MEDS: NS 1,000 ML IV SCH ×2 (02:22→10:26)
--- NOTE | 2016-12-21 02:30 | PDGENHP ---
History and Physical - Chief Complaint worsened rash, muscle pain - History of Present Illness Patient is a 21-year-old male with a history of streptococcal pharyngitis that has been complicated by leukoclastic vasculitis with neuritis and myositis present. 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 Over the course of his hospitalization he was treated with Ceftriaxone for the strep pharyngitis and his skin and neurological symptoms were improving without the use of steroids. He was discharged home on 12/20 and patient states he had no symptoms of muscle pain or weakness at the time of discharge. He went home, took a nap and shortly after waking began developing significant pain in his upper extremities and his rash had diffusely spread proximately on his lower extremities and diffusely on his b/l upper extremities. Given this obvious worsening of his symptoms, he decided to come back to the ED for further evaluation. He denies any throat discomfort, was prescribed Keflex 500 mg po bid , but had not yet taken a dose. On arrival to the ED, patient was afebrile and hemodynamically stable. Exam revealed diffuse extension of his previous purpuric rash. Labs showed elevated wbc from previous AM labs. He was then given IV steroids and admitted to the hospitalist service for further management. History Information - Allergies/Home Medication List Allergies/Adverse Reactions: No Known Allergies Allergy (Unverified 12/20/16 23:48) I have personally reviewed and updated: family history, medical history, social history, surgical history - Past Medical History Additional medical history: recurrent strep pharyngitis. [facility] admission: 12/18- for post-strep vasculitis/myositis - Surgical History Reports: no pertinent surgical hx - Family History Positive for: hypertension ( In his father) - Social History Smoking Status: Never smoked Additional social history: Patient is a student at [employer]. Is originally from [place], is here for college. His parents are also in the [place], currently living in [place]. Review of Systems ROS: 10pt was reviewed & negative except for what was stated in HPI & below Physical Exam Temp Pulse Resp BP Pulse Ox 37.4 C 72 16 141/61 H 94 12/21/16 02:12 12/21/16 02:12 12/21/16 02:12 12/21/16 02:12 12/21/16 02:12 Constitutional: appears nourished, uncomfortable Eyes: PERRL, anicteric sclera, EOMI Ears, Nose, Mouth, Throat: moist mucous membranes, hearing normal, ears appear normal, no oral mucosal ulcers Cardiovascular: regular rate and rhythym, no murmur, rub, or gallop, pulses symmetric bilaterally, No JVD, No edema Peripheral Pulses: 2+: dorsalis-pedis (R), dorsalis-pedis (L) Respiratory: no respiratory distress, no rales or rhonchi, clear to auscultation Gastrointestinal: normoactive bowel sounds, soft, non-tender abdomen, no palpable masses, No tenderness, No guarding, No rebound, No distension Genitourinary: no bladder fullness, no bladder tenderness Skin: other (diffuse nonblanching maculopapular rash; improving lesions on lower extremities, new and erythematous lesions extending proximately on lower extremities and diffusely on bilateral upper extremities) Musculoskeletal: other (muscular spasm and tenderness of b/l forearm muscle groups and mid thigh muscles diffusely; calfs without pain) Neurologic: AAOx3, sensation intact bilaterally, CN II-XII Intact, No weakness, No numbness, No pronator drift, No facial droop Psychiatric: interacting appropriately, not anxious, not encephalopathic, thought process linear Lab Data & Imaging Review 12/21/16 00:00 12/21/16 00:00 WBC 15.35 10^3/uL (3.80-9.50) H 12/21/16 00:00 RBC 5.79 10^6/uL (4.40-6.38) 12/21/16 00:00 Hgb 14.7 g/dL (13.7-17.5) 12/21/16 00:00 Hct 45.4 % (40.0-51.0) 12/21/16 00:00 MCV 78.4 fL (81.5-99.8) L 12/21/16 00:00 MCH 25.4 pg (27.9-34.1) L 12/21/16 00:00 MCHC 32.4 g/dL (32.4-36.7) 12/21/16 00:00 RDW 15.6 % (11.5-15.2) H 12/21/16 00:00 Plt Count 310 10^3/uL (150-400) 12/21/16 00:00 MPV 9.1 fL (8.7-11.7) 12/21/16 00:00 Neut % (Auto) 73.4 % (39.3-74.2) 12/21/16 00:00 Lymph % (Auto) 17.7 % (15.0-45.0) 12/21/16 00:00 [place] % (Auto) 6.9 % (4.5-13.0) 12/21/16 00:00 Eos % (Auto) 1.2 % (0.6-7.6) 12/21/16 00:00 Baso % (Auto) 0.3 % (0.3-1.7) 12/21/16 00:00 Nucleat RBC Rel Count 0.0 % (0.0-0.2) 12/21/16 00:00 Absolute Neuts (auto) 11.27 10^3/uL (1.70-6.50) H 12/21/16 00:00 Absolute Lymphs (auto) 2.71 10^3/uL (1.00-3.00) 12/21/16 00:00 Absolute Monos (auto) 1.06 10^3/uL (0.30-0.80) H 12/21/16 00:00 Absolute Eos (auto) 0.19 10^3/uL (0.03-0.40) 12/21/16 00:00 Absolute Basos (auto) 0.05 10^3/uL (0.02-0.10) 12/21/16 00:00 Absolute Nucleated RBC 0.00 10^3/uL (0-0.01) 12/21/16 00:00 Immature Gran % 0.5 % (0.0-1.1) 12/21/16 00:00 Immature Gran # 0.07 10^3/uL (0.00-0.10) 12/21/16 00:00 ESR 8 MM/HR (0-15) 12/21/16 00:00 Sodium 140 mEq/L (134-144) 12/21/16 00:00 Potassium 4.0 mEq/L (3.5-5.2) 12/21/16 00:00 Chloride 103 mEq/L (97-110) 12/21/16 00:00 Carbon Dioxide 23 mEq/l (22-31) D 12/21/16 00:00 Anion Gap 14 mEq/L (8-16) 12/21/16 00:00 BUN 17 mg/dL (7-23) 12/21/16 00:00 Creatinine 0.7 mg/dL (0.7-1.3) 12/21/16 00:00 Estimated GFR > 60 12/21/16 00:00 Glucose 96 mg/dL (70-100) 12/21/16 00:00 Calcium 9.4 mg/dL (8.5-10.4) 12/21/16 00:00 Total Bilirubin 0.5 mg/dL (0.1-1.4) D 12/21/16 00:00 Conjugated Bilirubin 0.4 mg/dL (0.0-0.5) 12/21/16 00:00 Unconjugated Bilirubin 0.1 mg/dL (0.0-1.1) 12/21/16 00:00 AST 45 IU/L (17-59) 12/21/16 00:00 ALT 42 IU/L (21-72) 12/21/16 00:00 Alkaline Phosphatase 76 IU/L (38-126) 12/21/16 00:00 Creatine Kinase 369 IU/L (0-224) H 12/21/16 00:00 CK-MB (CK-2) Fraction 1.48 ng/mL (0-3.19) 12/21/16 00:00 CK-MB (CK-2) % 0.4 % (0.0-4.0) 12/21/16 00:00 Creatine Kinase Interp NEGATIVE (NEGATIVE) 12/21/16 00:00 C-Reactive Protein 14.2 mg/L (<10.0) H 12/21/16 00:00 Total Protein 8.2 g/dL (6.3-8.2) 12/21/16 00:00 Albumin 4.7 g/dL (3.5-5.0) 12/21/16 00:00 Lipase 66.0 IU/L (23-300) 12/21/16 00:00 Assessment & Plan Assessment: patient is a 21-year-old male with recent history of streptococcal pharyngitis , was admitted on 12/18 with diffuse lower extremity rash and muscle aches, was diagnosed with a post streptococcal vasculitis and myositis. His symptoms were improving throughout hospitalization so steroids were not initiated, however after discharge rash diffusely worsened and now involves bilateral upper extremities. Plan: # post streptococcal leukoclastic vasculitis Patient's symptoms were improving this morning prior to discharge, however on returning home he again began experiencing significant myalgias now involving his upper extremities and extension of the rash as well. Neurology and ID consultation during previous hospitalization felt vasculitis has manifested with rash and with acute neuritis and myositis as well, which is consistent with patient's symptoms and exam. Given worsening, will now initiate immunotherapy with steroids and will also likely need rheumatology consultation. # strep pharyngitis Symptoms have been present for over a month, patient had previously undergone 2 incomplete courses of antibiotics. Since hospitalization on 12/18 he has been initiated on ceftriaxone, will continue this while he is inpatient with goal of 2 week total antibiotic course. Leukocytosis present on this admission has uptrended from previous AM labs. Possibly reactive and related to autoimmune process. Will cont ceftriaxone and trend CBC. # dispo: will likely require inpatient admission for > 2 [place] stay for further evaluation of acute vasculitis # gen: Regular diet DVT ppx: low risk Full code
[2016-12-21] MEDS: HYDROCODONE/APAP 5/325 TAB PO PRN ×2 (02:31→08:46)
[2016-12-21] MEDS ORDERED: methylPREDNISolone SOD SUCC 125 MG/2 ML VIAL IVP SCH (06:00)
[2016-12-21 06:09] LABS: % IMMATURE GRANULYOCYTES 0.5 % (0.0-1.1); ABSOLUTE IMMATURE GRANULOCYTES 0.09 10^3/uL (0.00-0.10); ADD DIFF? NO; ADD MORPH? NO; ADD SCAN? NO; ATYPICAL LYMPHOCYTE FLAG 10 (0-99); FRAGMENT RBC FLAG 0 (0-99); HEMATOCRIT 44.6 % (40.0-51.0); HEMOGLOBIN 14.5 g/dL (13.7-17.5); LEFT SHIFT FLG 0 (0-99); LIPEMIA HEMOLYSIS FLAG 80 (0-99); MEAN CELL HEMOGLOBIN 26.4 pg (27.9-34.1); MEAN CELL HEMOGLOBIN CONCENTR. 32.5 g/dL (32.4-36.7); MEAN CELL VOLUME 81.1 fL (81.5-99.8); MEAN PLATELET VOLUME 9.5 fL (8.7-11.7); PLATELET CLUMPS FLAG 0 (0-99); PLATELET COUNT 294 10^3/uL (150-400); RED CELL DISTRIBUTION WIDTH 15.9 % (11.5-15.2)
[2016-12-21 06:22] LABS: ANION GAP 12 mEq/L (8-16); CALCIUM 9.9 mg/dL (8.5-10.4); CARBON DIOXIDE 26 mEq/l (22-31); CHLORIDE 103 mEq/L (97-110); CREATININE 0.8 mg/dL (0.7-1.3); GLOMERULAR FILTRATION RATE > 60; GLUCOSE 137 mg/dL (70-100); SODIUM 141 mEq/L (134-144)
[2016-12-21 06:30] LABS: CREATINE KINASE-MB FRACTION 1.08 ng/mL (0-3.19)
[2016-12-21] MEDS ORDERED: cefTRIAXone 2 GM in D5W 50 ML IV SCH (09:00)
[2016-12-21] MEDS ORDERED: methylPREDNISolone SOD SUCC 40 MG/ML VIAL IVP SCH (12:00)
--- NOTE | 2016-12-21 12:25 | HOSPPROG ---
Hospitalist Progress Note Assessment/Plan: 21 yo M with no significant PMH admitted recently with petechial rash, myositis and neuritis in the setting of recent GAS pharyngitis now readmitted with worsening rash and pain and weakness of his upper extremities thought to be secondary to post strep vasculitis # vasculitis: with diffuse petechial rash that has been spreading rapidly since his last admission. Somewhat puzzling picture with initially normal inflammatory markers and now only minimally elevated crp. Thought initially to be 2/2 post strep leukocytoclastic vasculitis. Reviewed with ID and rheumatology and will look as well for other etiologies with checking CLAUDIA, anti- dsDNA, ANCA, anti ro/la/menjivar, RG, cyroglobulins and obtain a biopsy of the rash. Will dc steroids for now given that weakness has improved and that this may hinder a diagnosis being made. Complement levels wnl, hep serologies negative, HIV negative, UTox negative. # GAS pharyngitis: with now 3 positive strep tests and 2 prior courses of abx ( penicillin--course cut short by 3 days, and then azithromycin, now ctx). Will continue CTX. As above, possibly the underlying etiology for his presentation, appreciate ID help. # leukocytosis: remains quite elevated, in setting of above and was elevated prior to receiving steroids. # mild rhabdomyolysis: CK has trended down since initial admission, was in the setting of diffuse myalgias and muscle tightness. # hyperglycemia: new this morning after receiving high dose steroids overnight and likely related to same. Monitoring. # dispo: IP status, complex medical issues requiring IP care Patient new to my care. Old records including recent H&P and consult notes reviewed and summarized as above. Care plan reviewed with Dr. Cheng, Rheumatology and general surgery. Further hx obtained from patients mother over the phone > 45 minutes spent in care of this patient, more than half in coordination of care as well as counseling patient and his mother regarding care plan and work up Subjective: no significant overnight events, patient notes contined rash that has extended from his lower extremities to involve his upper extremities, his right hand has some weakness still Objective: Vital Signs Temp Pulse Resp BP Pulse Ox 36.6 C 73 18 106/53 L 98 12/21/16 08:28 12/21/16 08:28 12/21/16 08:28 12/21/16 08:28 12/21/16 08:28 Laboratory Results 12/21/16 05:45 12/21/16 05:45 12/20/16 12/21/16 12/22/16 05:59 05:59 05:59 Intake Total 428 Balance 428 awake alert anicteric op clear no oral lesions rrr no mrg cta b soft nt nd no cce diffuse petechial non blanching rash over lower and upper extremities oriented appropriate ICD10 Worksheet Patient Problems: Problems Problem Status Onset Vasculitis Acute Guillain-[place] syndrome Acute Leg weakness Acute Petechial rash Acute Strep pharyngitis Acute
[2016-12-21 12:33] LABS: COLOR YELLOW; LEUKOCYTE ESTERASE,URINE NEGATIVE (NEGATIVE); NITRITE,URINE NEGATIVE (NEGATIVE)
[2016-12-21 12:35] LABS: MUCUS TRACE /lpf (NONE-1+)
[2016-12-21] MEDS ORDERED: LIDOCAINE 1% 30 ML SDV IF ONE (12:48)
--- NOTE | 2016-12-21 18:08 | PCMIDPN ---
Assessment/Plan: Assessment/Plan: * Probable leukocytoclastic vasculitis associated with preceding group A streptococcal pharyngitis: Reviewed findings with Rheumatology with consideration for HSP. Plans for skin biopsy by General surgery to further define. Previous plans to complete therapy with cephalexin for group A strep pharyngitis. Do not think needs continued ceftriaxone and will transition to cephalexin in a.m. to complete therapy as outlined by Dr. Mena on 12/20/2016. Discontinue droplet precautions as patient has received greater than 24 hours of antibiotic therapy for group A streptococcal pharyngitis. * Leukocytosis: Suspect leukemoid component due to underlying vasculitis. 12/21/16 18:04 12/21/16 18:09 Subjective: Patient readmitted overnight with worsening rash. Overall sore throat has significantly improved. Prior hospital course reviewed. Objective: Vital Signs Temp Pulse Resp BP Pulse Ox 36.9 C 78 18 143/75 H 98 12/21/16 15:42 12/21/16 15:42 12/21/16 15:42 12/21/16 15:42 12/21/16 15:42 Laboratory Results 12/21/16 05:45 12/21/16 05:45 12/20/16 12/21/16 12/22/16 05:59 05:59 05:59 Intake Total 428 Balance 428 ESR 8 MM/HR (0-15) 12/21/16 00:00 C-Reactive Protein 14.2 mg/L (<10.0) H 12/21/16 00:00 Ceftriaxone # 4 Status post methylprednisolone which has now been held in anticipation of skin biopsy - Physical Exam General Appearance: alert, no apparent distress EENT: other (Mild tonsillar hypertrophy and erythema), No tonsillar exudate Respiratory: lungs clear, No respiratory distress Neck: supple Cardiac/Chest: regular rate, rhythm, No systolic murmur Skin: rash (Petechial/purpuric rash over lower extremities and upper extremities ; varying stages of evolution; nonblanching; nontender; most prominent over medial thighs bilaterally) Neuro/Psych: alert, No confused ICD10 Worksheet Patient Problems: Problems Problem Status Onset Vasculitis Acute Guillain-[place] syndrome Acute Leg weakness Acute Petechial rash Acute Strep pharyngitis Acute
--- NOTE | 2016-12-21 19:12 | PDCONSULT ---
Processor Helper Note: RHEUMATOLOGY CONSULTATION Consult requested by Dr. Nick Powell CC Rash and muscle tightness. HPI: Stuart is a 21 year old male whose current history starts about 3 weeks ago. He reports he developed severe throat pain, fever and malaise. Symptoms were similar to prior episodes of Strep throat so he presented to [facility] for testing. A strep test was positive and he was put on an oral antibiotic. He completed 7 to 8 days of the 10 day course, but forgot the medication at home when he left for a ski trip. After a day or two without antibiotics he again had sore throat and malaise. He had a repeat strep test which was positive. He was given a different class of antibiotic. He reports this helped a little, but was not quite as effective. He had been skiing intermittently during this time period. He then returned to tri-athlete training and had a strenuous swim session. That night and the subsequent day he had increased muscle pain in his legs, abdomen and through much of his body. Later that day he had a new rash develop on his calves and ankles which was petecial in nature. He also developed some weakness, numbness and ongoing rash. He presented for evaluation and was found to have mild CK elevated at 990. He had an unremarkable LP and imaging of his spine. He improved after a few days on IV antibiotics. However, he was home for just a few hours when he had increased rash and muscle pain so he returned to the ER. He received a dose of steroids in the ER and another on the floor. He reports in general feeling relatively well. A little tired, no current fever, mild sore throat. He reports pain in his abdominal muscles, but denies any GI symptoms such as pain, nausea, poor appetite, blood in stools. Current rash has stopped spreading and he is feeling okay. PMH: Strep throat SH: Current student at [employer]. From [place] originally, but parents are currently in [place]. Denies smoking and illicit drugs. No history of STD. FH: HTN in father. No reported autoimmune history. Current meds: Keflex (recently changed from Ceftriaxone). Received methylprednisolone but currently stopped. Allergies: NKDA EXAM: T 36.9, BP 143/75, HR 78 HEENT unremarkable, no icterus; Pulm lungs are CTA B; Heart RRR no murmurs, rubs, gallops, abd is soft, he reports some muscle soreness, but not abdominal pain with palpation. BS present. MSK: strength is 5/5. No joint tenderness or synovitis. He does indicate some muscle pain at insertion sites. Skin: flat, red, rash on legs and arms predominantly. Most lesions are small although some are slightly larger. Labs and Imaging: MRI Brain, L/T/C spine without significant findings. LP fluid unremarkable. Urinalysis without protein or blood. CK from 12/18 to current has trended down 990, 906, 798, 369. CBC with leukocytosis but o/w unremarkable. Chem panel nl. Complements normal. Hepatitis B ab positive but ag negative, HCV ab negative. pending studies include Cryoglobulins,ANCA, SSA, SSB, Ralph, DS DNA. A/P: Stuart is a 21 year old male presenting with rash and muscle pain after a strep infection. His rash appears somewhat more petechial then purpuric. 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 While this is most common in children it is certainly reported in adults. I recommend skin biopsy with a sample for immunofluorescent studies which could help confirm diagnosis. I also ordered an IgA level which is elevated in only a portion of patients with HSP. He has no joint symptoms and no synovitis in joints. His muscle pain could have been from mild rhabo and is improving with rest and fluid. Given his note that muscle pain seemed worse at insertions sites I did order an HLA B27 for possible reactive arthritis. This is positive in about 15% of healthy controls so may need further evaluation if this is positive. Remaining pending studies are appropriate for differential including cryos, ANCA associated vasculitis, Sjogren's, and lupus. 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 According to Stuart skin biopsy is planned for today or tomorrow. No current evidence of renal disease (normal creatinine and urinalysis). Generally HSP is a self-limited condition with conflicting reports about benefits of steroids. Given he is currently doing well without GI or renal involvement I would hold off on prednisone. If he has increased rash, new proteinuria or increased abdominal pain I would have a low threshold to start prednisone 20mg TID. I discussed the above in detail with Stuart and at his request also phoned and discussed with his mother Liss. Will continue to follow his chart and await for pending serologies and skin biopsy pathology.
--- NOTE | 2016-12-22 03:58 | GCON ---
DATE OF CONSULTATION: 12/21/2016 CHIEF COMPLAINT: Post strep vasculitis. HISTORY OF PRESENT ILLNESS: Dr. Meli Gomez consulted Neurology for evaluation of patient's vasculitis. Results of evaluation placed in the EMR for her review. This is a 21-year-old male with a history of streptococcal pharyngitis that has been complicated by leukocytoclastic vasculitis with neuritis and myositis. The patient was hospitalized for a rash, myalgias, and neurologic weakness on December 18, 2016, at which point, it was determined that he had post streptococcal vasculitis. His weakness and neurologic symptoms spontaneously improved, so on December 20, 2016, he was discharged home with no symptoms of muscle pain or weakness at that time. He went home and took a nap and when he awoke he had redeveloped significant pain in his upper extremities, and his rash had spread from his lower extremities to his upper extremities. He came back to the hospital and was re-admitted. The hospitalist service. I discussed the case with Rheumatology and ID. It was determined to place him on steroids, as well as perform additional rheumatologic testing. The patient states today when I examined him, that his upper extremity weakness and pain is significantly improved. He feels much less weakness and feels much better. ALLERGIES: No known drug allergies. PAST MEDICAL HISTORY: Recurrent strep pharyngitis. FAMILY HISTORY: Hypertension. SOCIAL HISTORY: Never smoked. REVIEW OF SYSTEMS: A 10-point review of system was negative except what was stated in the HPI. PHYSICAL EXAM: VITAL SIGNS: Blood pressure 106/53, heart rate 73, respirations 18, saturating 98% on room air, temperature 36.6 degrees Celsius. GENERAL: In no acute distress. EYES: Funduscopic exam could not visualize optic discs. LUNGS: Clear to auscultation bilaterally. No rhonchi or rales. HEART: Regular rate and rhythm. No murmurs. No carotid bruits auscultated. DERMATOLOGIC: He has petechial rash on his arms and legs. NEUROLOGIC: Mental status: Alert and oriented to person, place, and date. Memory, attention, language, and fund of knowledge all appear intact. Cranial nerves: Pupils equal, round, reactive to light. Visual baez full to confrontation. Extraocular muscles intact. Bilateral face intact to sensation and motor movement. Hearing intact to conversation. Uvula raises symmetrically. Tongue protrudes midline. Throughout 5/5 strength. Motor exam: Normal tone and strength in all 4 extremities. Sensory exam: All 4 extremities intact to light touch. Reflexes: Bilateral patellas 3/4. Coordination: Bilateral [id number], [id number], rapid alternating movements are normal. Gait deferred. LAB: December 18, 2016, the CBC shows a white blood cell count of 19.76. ESR 6. CK 990. TSH normal. Positive group B strep. December 18, 2016, lumbar puncture shows clear fluid with white blood cell count of 4.4, red blood cell count of 0, protein of 34, glucose 61. CSF culture negative. HSV 1 and 2 negative. December 21, 2016, CBC with white blood cell count of 18.3. ESR 8. CMP unremarkable. CK 369. CRP elevated at 14. RADIOLOGY: December 18, 2016, cervical, thoracic, and lumbar MRIs with and without contrast were generally unremarkable. There is a mild disk bulge at C6 , C7. December 18, 2016, brain MRI with and without contrast shows a single white matter spot, likely due to age or prior concussion. There are no significant vascular changes seen. I personally reviewed the brain MRI. ASSESSMENT: Post streptococcal vasculitis causing neuralgias and myalgias, as well as petechial rash. RECOMMENDATIONS: 1. Agree with rheumatologic input. I am not familiar with this condition. I have formed a large literature review and discussed with my colleagues. There does not appear to be any treatment algorithm and most literature in these cases is from rheumatologic discipline. Therefore, I would refer to rheumatologic management at this time. If there any specific neurologic complications or questions I would be happy to become involves. Otherwise, we would defer to our rheumatologic colleagues. 2. No further neurologic workup needed at this time. Neurology will be happy to become re-involved if any questions, concerns, or if help is needed. The patient does appear to be improving from admission yesterday to today based on his lack of weakness or significant numbness or pain. /[id number]/MODL MTDD
[2016-12-22 06:11] LABS: % IMMATURE GRANULYOCYTES 0.5 % (0.0-1.1); ADD DIFF? NO; ADD MORPH? NO; ADD SCAN? NO; ATYPICAL LYMPHOCYTE FLAG 10 (0-99); FRAGMENT RBC FLAG 0 (0-99); HEMATOCRIT 41.2 % (40.0-51.0); HEMOGLOBIN 13.2 g/dL (13.7-17.5); LEFT SHIFT FLG 10 (0-99); LIPEMIA HEMOLYSIS FLAG 80 (0-99); MEAN CELL VOLUME 81.1 fL (81.5-99.8); MEAN PLATELET VOLUME 9.7 fL (8.7-11.7); PLATELET CLUMPS FLAG 10 (0-99); PLATELET COUNT 302 10^3/uL (150-400); RED BLOOD CELL COUNT 5.08 10^6/uL (4.40-6.38); RED CELL DISTRIBUTION WIDTH 15.5 % (11.5-15.2)
[2016-12-22 06:22] LABS: ANION GAP 10 mEq/L (8-16); CALCIUM 9.2 mg/dL (8.5-10.4); CARBON DIOXIDE 28 mEq/l (22-31); CHLORIDE 105 mEq/L (97-110); CREATININE 0.7 mg/dL (0.7-1.3); GLOMERULAR FILTRATION RATE > 60; GLUCOSE 97 mg/dL (70-100); POTASSIUM 4.1 mEq/L (3.5-5.2); SODIUM 143 mEq/L (134-144)
--- NOTE | 2016-12-22 07:32 | GOP ---
DATE OF OPERATION: 12/21/2016 SURGEON: Ronni Landeros MD ANESTHESIA: 1% lidocaine local. PREOPERATIVE DIAGNOSIS: Diffuse skin rash. POSTOPERATIVE DIAGNOSIS: Diffuse skin rash. PROCEDURE PERFORMED: Right lower extremity skin biopsy. FINDINGS: Successful biopsy of rash site on right lower extremity. SPECIMENS: Right lower extremity skin biopsy. ESTIMATED BLOOD LOSS: 3 cc. DESCRIPTION OF PROCEDURE: After discussing the risks, benefits, and alternatives, consent was christina d. A World Health Organization time-out was performed with patient participation. The right lower extremity was prepped and draped in a typical sterile fashion. I anesthetized the area using a fiel d block of 1% lidocaine. After successful anesthesia, I removed an ellipse of skin using a 15-blade scalpel down to the subcutaneous tissue. Hemostasis was achieved with gentle pressure. Specimen w as placed in formalin and sent to pathology. After hemostasis was achieved, I closed the wound with multiple interrupted 3-0 nylon stitches over which a sterile dressing was placed. The patient tole rated the procedure well with no intraprocedural complications. DRAINS: None. COMPLICATIONS: None. /[id number]/MODL
[2016-12-22 07:56] VITALS: BP 113/52; PULSE 55; RESP 18; TEMP 97.7; O2SAT 95
[2016-12-22] MEDS: CEPHALEXIN 500 MG CAP PO SCH ×2 (08:00→09:42)
--- NOTE | 2016-12-22 08:06 | GCON ---
DATE OF CONSULTATION: 12/21/2016 CHIEF COMPLAINT: Rash and muscle pain. HISTORY OF PRESENT ILLNESS: This is an otherwise healthy 21-year-old male, who is currently admitte d to the hospital service for rash and myalgias with weakness, since the . 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 He was subsequently discharged home on the , only to go home, take a nap, and wake up in fairly excruciating pain in his upper extremities, with a diffuse rash over essentially his whole b bin, most notably on his extremities. He subsequently re-presented back to the emergency department , and was admitted to their service. On my consultation he states that the rash is improved. The m yalgias are improved, and he overall feels well. He denies having fevers or chills, and has no pain . I was asked to evaluate the patient for a skin biopsy to aid in diagnosis. PAST MEDICAL HISTORY: Recurrent strep. PAST SURGICAL HISTORY: None. SOCIAL HISTORY: Current student at . Originally from [place]. Denies illicit drug use. Social alcohol use. REVIEW OF SYSTEMS: A full 10 point was performed and unless explicitly stated above, is otherwise n egative. CURRENT MEDICATIONS: Please see med rec for full reconciliation. ALLERGIES: None. PHYSICAL EXAMINATION: VITAL SIGNS: Temperature 36.9, blood pressure 143/75, heart rate 78, and he is 98% on room air. GENERAL: He is alert and oriented, in no acute distress. CARDIOVASCULAR: Reg ular rate and rhythm without any murmurs. LUNGS: Clear. ABDOMEN: Soft. SKIN: He has a fairly di ffuse non blanching rash most notably on his extremities, chest, abdomen; appeared to start on his lower extremities and move up. It is nontender to palpation. ASSESSMENT AND PLAN: A 21-year-old male, with acute onset worsening rash. I was asked to signal maintainer helper in diagnosis with a skin biopsy. I discussed the risks, benefits, and alternatives to skin biopsy with the patient. He wishes to pro ceed. We will plan to perform bedside skin biopsy under local anesthesia. /[id number]/MODL
--- NOTE | 2016-12-22 10:00 | SOAPPROG ---
SOAP Progress Note Assessment/Plan: Assessment/Plan - PPD#1 s/p RLE skin Bx - site is c/d/i, discussed with patient and nurse that it is ok for him to remove dressing and shower today. Await final path. 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
--- NOTE | 2016-12-22 10:24 | PDDCSUM ---
Discharge Summary Discharge Summary: Dates of service: 12/21-12/22/26 Discharge dx: # vasculitis # strep pharyngitis # neuritis/myositis Consultations: ID, Rheumatology, neurology, general surgery Procedures performed: skin biopsy Hospital course by problem: 21 yo previously healthy male presenting with vasculitis occurring post Group A streph pharyngitis # vasculitis: with diffuse petechial rash that has continued to spread since last dc. 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 Holding off on steroids given continued improvement. Skin biopsy performed. # GAS pharyngitis: continue prolonged course of keflex, f/u with ID # leukocytosis: remains quite elevated, in setting of above and was elevated prior to receiving steroids, likely related to underlying vasculitis process # mild rhabdomyolysis: CK has trended down since initial admission, was in the setting of diffuse myalgias and muscle tightness. # hyperglycemia: likely related to steroids given, had not been present prior to steroids Dispo: dc home F/u with rheumatology and ID > 35 minutes spent in dc home more than half in coordination of care with other providers and counseling patient regarding f/u care
[2016-12-22 16:23] LABS: SS-A/Ro AUTOANTIBODIES <0.2 U; SS-B/La AUTOANTIBODIES <0.2 U; Sm (SMITH) AUTOANTIBODIES <0.2 U
[2016-12-23 18:55] LABS: IMMUNOGLOBULIN A 308 mg/dL (61 - 356); IMMUNOGLOBULIN G 1140 mg/dL (767 - 1590); IMMUNOGLOBULIN M 60 mg/dL (37 - 286)
== END 2016-12-22 11:43 | disposition home or self-care (01) | DRG 607 ==
LOC: F1N 12-21 02:05
PROVIDERS: ADMIT Internal Medicine; ATTEND Internal Medicine
PROC: 0JBL3ZX Excision of Right Upper Leg Subcutaneous Tissue and Fascia, Percutaneous Approach, Diagnostic (ICD-10-PCS; principal; 2016-12-21)
DX: L95.8 Other vasculitis limited to the skin (principal); M62.82 Rhabdomyolysis; J02.0 Streptococcal pharyngitis; R73.9 Hyperglycemia, unspecified
CPT/HCPCS: 82595-90; 82784-90; 83516-90; 83520-90; 86225-90; 86235-90; 86812-90; 96374; J0696; J2405